=== PATIENT | male | born 1940 | race Caucasian/White ===

== ENCOUNTER → 2021-12-02 | Outpatient (CLI) | payer MEDICARE, OTHER ==
[~2021-12-02] MED LIST: ASP81TEC PO; GLYB5TAB3 PO; MTF500T PO; MULT1CAP27 PO
== END ==
LOC: WOUNDCARE 09:12
PROVIDERS: ATTEND Family Medicine
DX: E11.621 Type 2 diabetes mellitus with foot ulcer (principal); L97.511 Non-pressure chronic ulcer of other part of right foot limited to breakdown of skin; E11.65 Type 2 diabetes mellitus with hyperglycemia; E11.40 Type 2 diabetes mellitus with diabetic neuropathy, unspecified; F03.90 Unspecified dementia, unspecified severity, without behavioral disturbance, psychotic disturbance, mood disturbance, and anxiety
CPT/HCPCS: A6197; A6212; G0463; 99204

== ENCOUNTER → 2021-12-09 | Outpatient (CLI) | payer MEDICARE, OTHER | LOC: WOUNDCARE 08:16 | PROVIDERS: ATTEND Family Medicine | DX: E11.65 Type 2 diabetes mellitus with hyperglycemia (principal); E11.40 Type 2 diabetes mellitus with diabetic neuropathy, unspecified; F03.90 Unspecified dementia, unspecified severity, without behavioral disturbance, psychotic disturbance, mood disturbance, and anxiety | CPT/HCPCS: 99212 ==

== ENCOUNTER 2022-01-04 19:21 | Inpatient (IN) | payer MEDICARE ==
[~2022-01-04] VITALS: Ht 180.3 cm; Wt 79.0 kg
[2022-01-04 19:30] LABS: BASOPHILS % (AUTO) 0 % (0-10); EOSINOPHILS % (AUTO) 0 % (0-10); HEMATOCRIT 32 % (40-54); HEMOGLOBIN 10.9 g/dL (13.3-17.7); LYMPHOCYTES # (AUTO) 0.4 10^3/uL (1.0-4.0); LYMPHOCYTES % (AUTO) 5 % (12-44); MEAN CORPUSCULAR HEMOGLOBIN 32 pg (25-34); MEAN CORPUSCULAR HGB CONC 34 g/dL (32-36); MEAN CORPUSCULAR VOLUME 95 fL (80-99); MEAN PLATELET VOLUME 9.2 fL (9.0-12.2); MONOCYTES # (AUTO) 0.6 10^3/uL (0.0-1.0); MONOCYTES % (AUTO) 6 % (0-12); NEUTROPHILS # (AUTO) 8.5 10^3/uL (1.8-7.8); NEUTROPHILS % (AUTO) 88 % (42-75); PLATELET COUNT 209 10^3/uL (130-400); WHITE BLOOD COUNT 9.6 10^3/uL (4.3-11.0)
[2022-01-04] MEDS ORDERED: NS IV 1000 ML 1,000 ML IV SCH ×3 (19:30→22:30)
[2022-01-04] MEDS ORDERED: ACETAMINOPHEN 500 MG TAB (TYLENOL) PO PRN (19:30)
--- NOTE | 2022-01-04 19:37 | ED General ---
General Stated Complaint: ELEV BS Source of Information: Patient (PT WITH DEMENTIA, UNABLE TO PROVIDE ANY PAST MEDICAL HISTORY), EMS History of Present Illness Date Seen by Provider: Jan 04, 2022 Time Seen by Provider: 19:21 Initial Comments PT ARRIVES VIA EMS FROM HOME EMS WAS CALLED FOR PT BEING LETHARGIC THIS EVENING SHORTLY PRIOR TO CALLING EMS. PT WALKED TO EMS COT, AND EARLIER TODAY HAD HIS HAIR CUT, WALKED ON TREADMILL EARLIER TODAY PT IS DIABETIC--BLOOD GLUCOSE TOO HIGH TO READ WITH KETONES FOR EMS EMS GAVE NS 400 ML PRIOR TO ARRIVAL WAS REPORTED TO EMS THAT PT HAS BEEN THIRSTY TODAY AND HAS HAD URINARY FREQUENCY ON ARRIVAL, PT IS AWAKE, ALERT, PLEASANT, BUT CONFUSED--REPORTEDLY NORMAL BASELINE WITH HIS DEMENTIA PT STATES HE FEELS FINE. PT NOTED TO HAVE TEMP OF 101.4/38.4 ON ARRIVAL HERE FINGERSTICK GLUCOSE 471 ON ARRIVAL HERE. DAUGHTER ARRIVES LATER ( EDUARDO FELIX RN) AND STATES THAT HE HAS BEEN WEAK FOR THE LAST 3 DAYS AND UNSTEADY ON HIS FEET, BUT NO OTHER SYMPTOMS FAMILY WERE UNAWARE OF FEVER. FAMILY STATE THAT PT IS DNR/DNI PT HAS HAD COVID-19 VACCINES X 2--OVER A YEAR AGO. NO BOOSTER VACCINE PCP: DR. KEI GRAVES Allergies and Home Medications Allergies Coded Allergies: No Known Allergies (Unverified Allergy, Mild, 11/02/09) Patient Home Medication List Aspirin (Aspirin Ec 81 Mg) 81 Mg Tabec, 81 MG PO DAILY, (Reported) Entered as Reported by: SHANKAR VAIL on 12/31/09 1342 Glyburide (Diabeta) 5 Mg Tablet, 5 MG PO DAILY, (Reported) Entered as Reported by: RICKI CHAND on 11/02/09 1720 Metformin Hcl (Metformin 500 Mg) 500 Mg Tablet, 500 MG PO BID, (Reported) Entered as Reported by: RICKI CHAND on 11/02/09 1720 Multivitamins (Multivitamins) 1 Each Capsule, 1 EACH PO DAILY, (Reported) Entered as Reported by: ANGELA ROGEL on 02/18/10 1341 Review of Systems Review of Systems Constitutional: see HPI, fever, malaise EENTM: no symptoms reported Respiratory: no symptoms reported Cardiovascular: no symptoms reported Gastrointestinal: no symptoms reported Genitourinary: see HPI, frequency Musculoskeletal: no symptoms reported Skin: no symptoms reported Psychiatric/Neurological: See HPI (NORMAL BASELINE DEMENTIA) Hematologic/Lymphatic: No Symptoms Reported Immunological/Allergic: no symptoms reported Past Ugbervb-Ctxrcz-Cydpss Hx Past Medical History Surgeries: Yes (BILATERAL KNEE REPLACEMENTS) Joint Replacement, Orthopedic Cardiac: Yes Heart Murmur, Hypertension Neurological: Yes Dementia Reproductive Disorders: No Musculoskeletal: Yes (BILATERAL KNEE REPLACEMENTS) Endocrine: Yes Diabetes, Non-Insulin dep Physical Exam Vital Signs Vital Signs - First Documented 01/04/22 19:22 Temp 38.4 Pulse 91 Resp 18 B/P (MAP) 134/66 (88) Pulse Ox 98 O2 Delivery Room Air Capillary Refill : Height, Weight, BMI Height: '" Weight: lbs. oz. kg; BMI Method:Stated General Appearance: No Apparent Distress, WD/WN HEENT: PERRL/EOMI Neck: Normal Inspection Respiratory: Normal Breath Sounds, No Accessory Muscle Use, No Respiratory Distress Cardiovascular: Regular Rate, Rhythm, No Edema, No JVD, Normal Peripheral Pulses, Systolic Murmur (3-4/6 SYSTOLIC MURMUR) Gastrointestinal: Non Tender, Soft Back: No CVA Tenderness Extremity: Non Tender, No Pedal Edema, Other (LARGE LIPOMATOUS-TYPE MASS TO LEFT UPPER THIGH. ) Neurologic/Psychiatric: Alert, No Motor/Sensory Deficits, Other (AWAKE, ALERT, PLEASANT, ORIENTED TO SELF, KNOWS HE IS IN HOSPITAL, DOES NOT KNOW WHY HE IS HERE, AND CONFUSED TO DATE/TIME. ) Skin: Normal Color, Warm/Dry (VERY WARM) Focused Exam Sepsis Stage: Sepsis Possible Source: Unknown Lactate Level 01/04/22 19:31: Lactic Acid Level 1.32 Time of Focused Exam: 20:40 Respiratory: Normal Breath Sounds, No Accessory Muscle Use, No Respiratory Distress Cardiovascular: Regular Rate, Rhythm, No Edema Capillary Refill: Less Than 3 Seconds Skin: normal color, warm/dry Lactic Acid Level Laboratory Tests Test 01/04/22 19:31 Lactic Acid Level 1.32 MMOL/L (0.50-2.00) Within 3hrs of presentation: Admin fluids, Admin ABX, Blood cultures prior to ABX's, Focus exam, Lactate level Progress/Results/Core Measures Suspected Sepsis SIRS Temperature: Pulse: Respiratory Rate: Laboratory Tests 01/04/22 19:23: White Blood Count 9.6 01/05/22 05:08: White Blood Count 8.1 Blood Pressure / Mean: 01/04/22 19:31: Lactic Acid Level 1.32 Laboratory Tests 01/04/22 19:23: Creatinine 2.24H, INR Comment 1.1, Platelet Count 209, Total Bilirubin 0.6 01/05/22 05:08: Creatinine 1.57H, Platelet Count 195 Results/Orders Lab Results Laboratory Tests Test 01/04/22 19:23 01/04/22 19:26 01/04/22 19:30 01/04/22 19:31 Range/Units White Blood Count 9.6 4.3-11.0 10^3/uL Red Blood Count 3.41 L 4.30-5.52 10^6/uL Hemoglobin 10.9 L 13.3-17.7 g/dL Hematocrit 32 L 40-54 % Mean Corpuscular Volume 95 80-99 fL Mean Corpuscular Hemoglobin 32 25-34 pg Mean Corpuscular Hemoglobin Concent 34 32-36 g/dL Red Cell Distribution Width 13.5 10.0-14.5 % Platelet Count 209 130-400 10^3/uL Mean Platelet Volume 9.2 9.0-12.2 fL Immature Granulocyte % (Auto) 1 % Neutrophils (%) (Auto) 88 H 42-75 % Lymphocytes (%) (Auto) 5 L 12-44 % Monocytes (%) (Auto) 6 0-12 % Eosinophils (%) (Auto) 0 0-10 % Basophils (%) (Auto) 0 0-10 % Neutrophils # (Auto) 8.5 H 1.8-7.8 10^3/uL Lymphocytes # (Auto) 0.4 L 1.0-4.0 10^3/uL Monocytes # (Auto) 0.6 0.0-1.0 10^3/uL Eosinophils # (Auto) 0.0 0.0-0.3 10^3/uL Basophils # (Auto) 0.0 0.0-0.1 10^3/uL Immature Granulocyte # (Auto) 0.1 0.0-0.1 10^3/uL Neutrophils % (Manual) 82 % Lymphocytes % (Manual) 5 % Monocytes % (Manual) 8 % Eosinophils % (Manual) 2 % Band Neutrophils 3 % Clumped Platelets SOME CLUMPING SEEN Blood Morphology Comment NORMAL Erythrocyte Sedimentation Rate 85 H 0-30 MM/HR Prothrombin Time 14.8 H 12.2-14.7 SEC INR Comment 1.1 0.8-1.4 Activated Partial Thromboplast Time 35 24-35 SEC Sodium Level 138 135-145 MMOL/L Potassium Level 4.6 3.6-5.0 MMOL/L Chloride Level 106 98-107 MMOL/L Carbon Dioxide Level 16 L 21-32 MMOL/L Anion Gap 16 H 5-14 MMOL/L Blood Urea Nitrogen 42 H 7-18 MG/DL Creatinine 2.24 H 0.60-1.30 MG/DL Estimat Glomerular Filtration Rate 29 BUN/Creatinine Ratio 19 Glucose Level 542 *H 70-105 MG/DL Calcium Level 10.1 8.5-10.1 MG/DL Corrected Calcium 10.2 H 8.5-10.1 MG/DL Magnesium Level 2.4 1.6-2.4 MG/DL Total Bilirubin 0.6 0.1-1.0 MG/DL Aspartate Amino Transf (AST/SGOT) 13 5-34 U/L Alanine Aminotransferase (ALT/SGPT) 14 0-55 U/L Alkaline Phosphatase 141 H 40-136 U/L C-Reactive Protein High Sensitivity 15.51 H 0.00-0.50 MG/DL Total Protein 7.3 6.4-8.2 GM/DL Albumin 3.9 3.2-4.5 GM/DL Amylase Level 18 L 25-125 U/L Lipase 7 L 8-78 U/L Beta-Hydroxybutyrate (Chem panel) 2.58 H 0.00-0.27 MMOL/L Procalcitonin 0.40 H <0.10 NG/ML Glucometer 468 *H 70-110 MG/DL Influenza Type A (RT-PCR) Not Detected Not Detecte Influenza Type B (RT-PCR) Not Detected Not Detecte SARS-CoV-2 RNA (RT-PCR) Not Detected Not Detecte Lactic Acid Level 1.32 0.50-2.00 MMOL/L Test 01/04/22 19:40 01/04/22 20:07 01/04/22 22:28 01/04/22 22:32 Range/Units Urine Color YELLOW Urine Clarity CLEAR Urine pH 5.5 5-9 Urine Specific Foster 1.010 L 1.016-1.022 Urine Protein NEGATIVE NEGATIVE Urine Glucose (UA) 3+ H NEGATIVE Urine Ketones 1+ H NEGATIVE Urine Nitrite NEGATIVE NEGATIVE Urine Bilirubin NEGATIVE NEGATIVE Urine Urobilinogen 0.2 < = 1.0 MG/DL Urine Leukocyte Esterase NEGATIVE NEGATIVE Urine RBC (Auto) TRACE-I H NEGATIVE Urine RBC NONE /HPF Urine WBC NONE /HPF Urine Squamous Epithelial Cells NONE /HPF Urine Crystals NONE /LPF Urine Bacteria TRACE /HPF Urine Casts NONE /LPF Urine Mucus SMALL H /LPF Urine Culture Indicated NO Blood Gas Puncture Site RIGHT RADIAL RIGHT RADIAL Blood Gas Patient Temperature 38.4 37.4 Arterial Blood pH 7.33 *L 7.37 7.37-7.43 Arterial Blood Partial Pressure CO2 40 37 35-45 MMHG Arterial Blood Partial Pressure O2 30 *L 38 *L 79-93 MMHG Arterial Blood HCO3 20 L 21 L 23-27 MMOL/L Arterial Blood Total CO2 21.3 21.9 21.0-31.0 MMOL/L Arterial Blood Oxygen Saturation 42 L 65 L 94-100 % Arterial Blood Base Excess -4.5 L -3.6 L -2.5-2.5 MMOL/L Presley Test YES-POS YES-POS Blood Gas Ventilator Setting NO NO Blood Gas Inspired Oxygen ROOM AIR ROOM AIR Glucometer 392 H 70-110 MG/DL Glucose Level 387 H 70-105 MG/DL Test 01/05/22 01:05 01/05/22 03:56 01/05/22 05:08 Range/Units Glucometer 116 H 124 H 70-110 MG/DL White Blood Count 8.1 4.3-11.0 10^3/uL Red Blood Count 2.85 L 4.30-5.52 10^6/uL Hemoglobin 9.0 L 13.3-17.7 g/dL Hematocrit 28 L 40-54 % Mean Corpuscular Volume 98 80-99 fL Mean Corpuscular Hemoglobin 32 25-34 pg Mean Corpuscular Hemoglobin Concent 32 32-36 g/dL Red Cell Distribution Width 13.6 10.0-14.5 % Platelet Count 195 130-400 10^3/uL Mean Platelet Volume 9.5 9.0-12.2 fL Immature Granulocyte % (Auto) 0 % Neutrophils (%) (Auto) 86 H 42-75 % Lymphocytes (%) (Auto) 6 L 12-44 % Monocytes (%) (Auto) 7 0-12 % Eosinophils (%) (Auto) 1 0-10 % Basophils (%) (Auto) 0 0-10 % Neutrophils # (Auto) 6.9 1.8-7.8 10^3/uL Lymphocytes # (Auto) 0.5 L 1.0-4.0 10^3/uL Monocytes # (Auto) 0.6 0.0-1.0 10^3/uL Eosinophils # (Auto) 0.1 0.0-0.3 10^3/uL Basophils # (Auto) 0.0 0.0-0.1 10^3/uL Immature Granulocyte # (Auto) 0.0 0.0-0.1 10^3/uL Sodium Level 144 135-145 MMOL/L Potassium Level 4.0 3.6-5.0 MMOL/L Chloride Level 116 #H 98-107 MMOL/L Carbon Dioxide Level 18 L 21-32 MMOL/L Anion Gap 10 5-14 MMOL/L Blood Urea Nitrogen 32 H 7-18 MG/DL Creatinine 1.57 H 0.60-1.30 MG/DL Estimat Glomerular Filtration Rate 44 BUN/Creatinine Ratio 20 Glucose Level 167 H 70-105 MG/DL Calcium Level 8.9 8.5-10.1 MG/DL Beta-Hydroxybutyrate (Chem panel) 0.87 H 0.00-0.27 MMOL/L My Orders Orders - LIZY HALLMAN DO Accucheck Stat ONCE (01/04/22 19:23) Ed Iv/Invasive Line Start (01/04/22 19:23) Monitor-Rhythm Ecg Trace Only (01/04/22 19:23) Amylase (01/04/22 19:23) Arterial Blood Gas (01/04/22 19:23) Cbc With Automated Diff (01/04/22 19:23) Comprehensive Metabolic Panel (01/04/22 19:23) Lactic Acid Analyzer (01/04/22 19:23) Lipase (01/04/22 19:23) Magnesium (01/04/22 19:23) Ua Culture If Indicated (01/04/22 19:23) Ed Iv/Invasive Line Start (01/04/22 19:23) Ns Iv 1000 Ml (Sodium Chloride 0.9%) (01/04/22 19:30) Beta Hydroxybutyrate (01/04/22 19:23) Hemoglobin A1c (01/04/22 19:23) Manual Differential (01/04/22 19:23) Procalcitonin (Pct) (01/04/22:) Hs C Reactive Protein (01/04/22:) Erythrocyte Sedimentation Rate (01/04/22:) Blood Culture (01/04/22:) Chest 1 View, Ap/Pa Only (01/04/22:) Covid 19 Inhouse Test (01/04/22:) Urine Culture (01/04/22:) Protime With Inr (01/04/22) Partial Thromboplastin Time (01/04/22:) Acetaminophen Tablet (Tylenol Tablet) (01/04/22 19:30) Ed Iv/Invasive Line Start (01/04/22:) Ed Iv/Invasive Line Start (01/04/22) Vital Signs Adult Sepsis Patie Q15M (01/04/22:) O2 (01/04/22:) Remove Rings In Anticipation O (01/04/22:) Influenza A And B By Pcr (01/04/22:) Isolation Central Supply Req (01/04/22:) Insulin (Regular) Human (Novolin R (Per (01/04/22 20:15) Ed Iv/Invasive Line Start (01/04/22 20:13) Ns Iv 1000 Ml (Sodium Chloride 0.9%) (01/04/22 20:15) Arterial Blood Draw - Obtain (01/04/22 ) Cefepime Injection (Maxipime Injection) (01/04/22 20:45) Code/Resuscitation (01/04/22 20:54) Arterial Blood Gas (01/04/22 21:51) Glucose (01/04/22 21:51) Insulin (Regular) Human (Novolin R (Per (01/04/22 22:30) Ed Iv/Invasive Line Start (01/04/22 22:30) Ns Iv 1000 Ml (Sodium Chloride 0.9%) (01/04/22 22:30) Arterial Blood Gas (01/04/22 22:32) Accucheck Stat ONCE (01/05/22 01:01) D5 1/2 Ns 1000 Ml Iv Solution (Dextrose (01/05/22 01:15) Accucheck Stat ONCE (01/05/22 03:50) Basic Metabolic Panel (01/05/22 04:51) Cbc With Automated Diff (01/05/22 04:51) Beta Hydroxybutyrate (01/05/22 04:51) Cefepime Injection (Maxipime Injection) (01/05/22 05:45) Medications Given in ED Current Medications Medications Dose Ordered Sig/Gabriella Route Start Time Stop Time Status Last Admin Dose Admin Acetaminophen 1,000 mg ONCE PRN PO 01/04/22 19:30 01/04/22 19:41 DC 01/04/22 19:41 1,000 MG Cefepime HCl 1000 mg/Sodium Chloride 50 ml @ 100 mls/hr ONCE ONCE IV 01/04/22 20:45 01/04/22 21:14 DC 01/04/22 21:00 100 MLS/HR Cefepime HCl 1000 mg/Sodium Chloride 50 ml @ 100 mls/hr ONCE ONCE IV 01/05/22 05:45 01/05/22 06:14 DC 01/05/22 05:46 100 MLS/HR Insulin Human Regular 10 unit ONCE ONCE IV 01/04/22 22:30 01/04/22 22:32 DC 01/04/22 22:45 10 UNIT Insulin Human Regular 15 unit ONCE ONCE SC 01/04/22 20:15 01/04/22 20:16 DC 01/04/22 20:24 15 UNIT Vital Signs/I&O 01/04/22 01/04/22 19:22 19:41 Temp 38.4 38.4 Pulse 91 Resp 18 B/P (MAP) 134/66 (88) Pulse Ox 98 O2 Delivery Room Air 01/05/22 00:00 Intake Total 400 ml Balance 400 ml Capillary Refill : Progress Note : Progress Note PLACED IN ISOLATION ROOM PPE WORN COVID AND FLU TESTING DONE SEPSIS PROTOCOL INITIATED GIVEN: -IV FLUIDS -TYLENOL FOR FEVER -ANTIBIOTICS -INSULIN PT KEPT PUI, SYMPTOMS BEGAN JUST AN HOUR OR SO PRIOR TO ARRIVAL BLOOD GASES WERE VENOUS--NOT ARTERIAL. REPEAT BLOOD SUGARS TRENDING DOWN 0223--PT HAS BEEN RESTING QUIETLY THROUGHOUT ENTIRE ER STAY, AND NOW SUDDENLY IS AWAKE AND HAS PULLED OUT HIS IV AND RIPPED OFF ALL MONITORING DEVICES. BUT PT IS NOT OTHERWISE AGITATED AND REMAINS QUIET, VITALS ARE STABLE. 0500--AM LAB ORDERED. PT IS RESTING QUIETLY AND VOICES NO COMPLAINTS. STATES HE FEELS FINE. PT REMAINS COOPERATIVE AT THIS TIME. 06--MARKED DELAY IN OBTAINING LAB RESULTS. GLUCOSE LEVEL CONTINUES TO STABILIZE, AND PT NO LONGER REQUIRES INSULIN DRIP OR DKA PROTOCOLS AND WILL BE ABLE TO ADMIT TO MEDICAL FLOOR ON TELEMETRY INSTEAD OF ICU. RN CONTACTING RESOURCE DIRECTORclinical staff rn Imaging Comments CXR--PER RADIOLOGIST REPORT AT 2044 FINDINGS: The lung volumes are normal. No focal consolidation is seen. No large pleural effusion or pneumothorax is seen. The cardiomediastinal silhouette is normal in size and contour. No acute osseous abnormality is seen. IMPRESSION: 1. No acute pleuroparenchymal process. Reviewed: Reviewed by Me Departure Communication (Admissions) 2034--SPOKE WITH DR. CORTEZ, HOSPITALIST. ACCEPTS PT FOR ADMIT HOSPITAL IS CURRENTLY FULL, BUT ANTICIPATE THAT ICU BED WILL BE OPENING UP SOON, THEREFORE WILL HOLD PT IN ER. Impression Primary Impression: DKA (diabetic ketoacidosis) Additional Impressions: SEPSIS UNKNOWN ETIOLOGY Person under investigation for COVID-19 Renal insufficiency Dementia Departure-Patient Inst. Referrals: KEI GRAVES MD (PCP) Primary Care Physician LIZY HALLMAN DO Jan 04, 2022 19:37
[2022-01-04 19:44] LABS: INR 1.1 (0.8-1.4); PROTHROMBIN TIME PATIENT 14.8 SEC (12.2-14.7)
[2022-01-04 19:51] LABS: BILIRUBIN,URINE NEGATIVE (NEGATIVE); CLARITY,URINE CLEAR; COLOR,URINE YELLOW; GLUCOSE, URINE (UA) 3+ (NEGATIVE); KETONES,URINE 1+ (NEGATIVE); LEUKOCYTE ESTERASE ,URINE NEGATIVE (NEGATIVE); NITRITE,URINE NEGATIVE (NEGATIVE); PH,URINE 5.5 (5-9); PROTEIN,URINE NEGATIVE (NEGATIVE)
[2022-01-04 19:58] LABS: ALBUMIN 3.9 GM/DL (3.2-4.5); BAND NEUTROPHILS 3 %; EOSINOPHILS % (MANUAL) 2 %; LYMPHOCYTES % (MANUAL) 5 %; MONOCYTES % (MANUAL) 8 %; NEUTROPHILS % (MANUAL) 82 %; PLATELET CLUMPS SOME CLUMPING SEEN; RBC MORPH NORMAL
[2022-01-04 19:59] LABS: POTASSIUM 4.6 MMOL/L (3.6-5.0)
[2022-01-04 20:00] LABS: CALCIUM 10.1 MG/DL (8.5-10.1)
[2022-01-04 20:01] LABS: TOTAL PROTEIN 7.3 GM/DL (6.4-8.2)
[2022-01-04 20:03] LABS: BILIRUBIN,TOTAL 0.6 MG/DL (0.1-1.0)
[2022-01-04 20:05] LABS: BACTERIA,URINE TRACE /HPF
[2022-01-04 20:05] LABS: CREATININE SERUM 2.24 MG/DL (0.60-1.30)
[2022-01-04 20:08] LABS: MAGNESIUM 2.4 MG/DL (1.6-2.4)
[2022-01-04] MEDS ORDERED: inSUlin (REGULAR) HUMAN 1 UNIT/0.01 ML (CHARGE PER UNIT) SC ONE (20:15)
--- NOTE | 2022-01-04 20:26 | Diagnostic Imaging Report ---
EXAMINATION: Chest 1 view HISTORY: Fever. COMPARISON: None available. FINDINGS: The lung volumes are normal. No focal consolidation is seen. No large pleural effusion or pneumothorax is seen. The cardiomediastinal silhouette is normal in size and contour. No acute osseous abnormality is seen. IMPRESSION: 1. No acute pleuroparenchymal process. Dictated by: Dictated on workstation # [id number]
[2022-01-04 20:33] LABS: ABG BASE EXCESS -4.5 MMOL/L (-2.5-2.5); ABG OXYGEN SATURATION 42 % (94-100); ABG PCO2 40 MMHG (35-45); ABG TCO2 21.3 MMOL/L (21.0-31.0)
[2022-01-04 20:34] LABS: ABG PH 7.33 (7.37-7.43)
[2022-01-04 20:35] LABS: ABG PO2 30 MMHG (79-93); ALLENS TEST YES-POS; INSPIRED O2 ROOM AIR; VENTILATOR NO
[2022-01-04 20:36] LABS: PATIENT TEMP 38.4
[2022-01-04] MEDS ORDERED: CEFEPIME INJECTION 1,000 MG in NS (IVPB) 50 ML IV ONE (20:45)
[2022-01-04] MEDS ORDERED: inSUlin (REGULAR) HUMAN 1 UNIT/0.01 ML (CHARGE PER UNIT) IV ONE (22:30)
[2022-01-04 22:43] LABS: ABG BASE EXCESS -3.6 MMOL/L (-2.5-2.5); ABG OXYGEN SATURATION 65 % (94-100); ABG PCO2 37 MMHG (35-45); ABG PH 7.37 (7.37-7.43); ABG TCO2 21.9 MMOL/L (21.0-31.0)
[2022-01-04 22:44] LABS: ABG PO2 38 MMHG (79-93); ALLENS TEST YES-POS; INSPIRED O2 ROOM AIR; PATIENT TEMP 37.4; VENTILATOR NO
[2022-01-05] VITALS (8 sets, daily range): BP systolic 107–140; BP diastolic 54–67
[2022-01-05] MEDS ORDERED: D5 1/2 NS 1000 ML IV SOLUTION 1,000 ML IV SCH (01:15)
[2022-01-05] MEDS ORDERED: CEFEPIME INJECTION 1,000 MG in NS (IVPB) 50 ML IV ONE (05:45)
[2022-01-05 06:17] LABS: BASOPHILS % (AUTO) 0 % (0-10); EOSINOPHILS # (AUTO) 0.1 10^3/uL (0.0-0.3); EOSINOPHILS % (AUTO) 1 % (0-10); HEMATOCRIT 28 % (40-54); LYMPHOCYTES # (AUTO) 0.5 10^3/uL (1.0-4.0); LYMPHOCYTES % (AUTO) 6 % (12-44); MEAN CORPUSCULAR HEMOGLOBIN 32 pg (25-34); MEAN CORPUSCULAR HGB CONC 32 g/dL (32-36); MEAN CORPUSCULAR VOLUME 98 fL (80-99); MEAN PLATELET VOLUME 9.5 fL (9.0-12.2); MONOCYTES # (AUTO) 0.6 10^3/uL (0.0-1.0); MONOCYTES % (AUTO) 7 % (0-12); NEUTROPHILS # (AUTO) 6.9 10^3/uL (1.8-7.8); NEUTROPHILS % (AUTO) 86 % (42-75); PLATELET COUNT 195 10^3/uL (130-400); WHITE BLOOD COUNT 8.1 10^3/uL (4.3-11.0)
[2022-01-05 06:18] LABS: CALCIUM 8.9 MG/DL (8.5-10.1)
[2022-01-05 06:23] LABS: CREATININE SERUM 1.57 MG/DL (0.60-1.30)
[2022-01-05] MEDS ORDERED: NS IV 1000 ML 1,000 ML IV SCH (08:00)
[2022-01-05] MEDS ORDERED: ACETAMINOPHEN 500 MG TAB (TYLENOL) PO PRN (08:00)
[2022-01-05] MEDS ORDERED: ONDANSETRON 4 MG/2 ML (SDV) Z0FRAN IVP PRN (08:00)
[2022-01-05] MEDS ORDERED: ENAL10TA16 PO (11:17)
[2022-01-05] MEDS ORDERED: TMSL.4C PO (11:17)
[2022-01-05] MEDS ORDERED: DONE10TA41 PO (11:17)
[2022-01-05] MEDS ORDERED: CHOL-34 PO (11:17)
[2022-01-05] MEDS ORDERED: DIPH25TA65 PO (11:17)
[2022-01-05] MEDS ORDERED: NAPR220C11 PO (11:17)
[2022-01-05] MEDS ORDERED: MEMA5TAB43 PO (11:17)
[2022-01-05] MEDS ORDERED: MULT-1136 PO (11:17)
[2022-01-05] MEDS ORDERED: METF-397 PO (11:17)
[2022-01-05] MEDS ORDERED: ASCO100024 PO (11:17)
[2022-01-05] MEDS ORDERED: ZINC50TA51 PO (11:17)
[2022-01-05] MEDS ORDERED: CEFEPIME INJECTION 1,000 MG in NS (IVPB) 50 ML IV SCH (12:00)
[2022-01-05] MEDS: inSUlin ASPART (NovoLOG) 1 UNIT/0.01 ML (CHARGE PER UNIT) SC SCH ×3 (12:15→20:57)
[2022-01-05 12:52] LABS: BAND NEUTROPHILS 10 %; EOSINOPHILS % (MANUAL) 1 %; LYMPHOCYTES % (MANUAL) 7 %; MONOCYTES % (MANUAL) 4 %; NEUTROPHILS % (MANUAL) 78 %; RBC MORPH NORMAL
[2022-01-05] MEDS: NS IV 1000 ML 1,000 ML IV SCH ×2 (14:16→16:23)
--- NOTE | 2022-01-05 16:58 | History & Physical-Hospitalist ---
History of Present Illness HPI/Chief Complaint Rex Gabriel is an 81 year old male with PMH HTN, T2DM, BPH, dementia, who presented with lethargy. He is a poor historian due to his dementia. He was reportedly feeling weak for a few days according to family. He denies any fevers and chills. He denies pain. He denies shortness of breath and cough. He denies abdominal pain, nausea, vomiting, and diarrhea. He denies any joint pain. He denies any skin changes. Source: patient, RN/MD Exam Limitations: clinical condition Date Seen 01/05/22 Time Seen by a Provider: 10:45 Attending Physician Alonzo Espinoza MD PCP Admitting Physician: Julian Alvarez MD Attending Physician: Moni Sen MD Referring Physician Date of Admission Jan 04, 2022 at 20:35 Home Medications & Allergies Home Medications Reviewed patient Home Medication Reconciliation performed by pharmacy medication reconciliations entry level installation technician and/or nursing. Patients Allergies have been reviewed. Allergies Allergies Coded Allergies NKANo Known Allergies (Unverified Allergy, Mild, 11/02/09) Past Phqlzrt-Nlppwr-Fthtjz Hx Patient Social History Tobacco Use?: No Use of E-Cig and/or Vaping dev: Yes Substance use?: No Alcohol Use?: No Pt feels they are or have been: No Immunizations Up To Date First/Initial COVID19 Vaccinat: UNKNOWN Tetanus Booster (TDap): Unknown Hepatitis A: No Hepatitis B: No Current Status Advance Directives: No Advance Directive Location: FAMILY IN PROCESS OF GETTING ONE Communicates: Verbally Primary Language: Brazilian Preferred Spoken Language: Brazilian Is interpretation needed?: No Sensory deficits: Vision impairment, Hearing impairment Implanted or Applied Medical D: None Past Medical History Surgeries: Joint Replacement, Orthopedic Heart Murmur, Hypertension Dementia Diabetes, Non-Insulin dep Family Medical History No Pertinent Family Hx Review of Systems Constitutional: weakness EENTM: no symptoms reported Respiratory: no symptoms reported Cardiovascular: no symptoms reported Gastrointestinal: no symptoms reported Genitourinary: no symptoms reported Musculoskeletal: no symptoms reported Physical Exam Physical Exam Vital Signs Vital Signs - First Documented 01/04/22 19:22 Temp 38.4 Pulse 91 Resp 18 B/P (MAP) 134/66 (88) Pulse Ox 98 O2 Delivery Room Air Capillary Refill : Less Than 3 Seconds Height, Weight, BMI Height: '" Weight: lbs. oz. kg; 23.07 BMI Method:Stated General Appearance: No Apparent Distress, WD/WN HEENT: PERRL/EOMI, Pharynx Normal Neck: Normal Inspection, Supple Respiratory: Lungs Clear, Normal Breath Sounds, No Respiratory Distress Cardiovascular: Regular Rate, Rhythm, No Edema, No Murmur Gastrointestinal: Normal Bowel Sounds, Non Tender, Soft Extremity: Normal Inspection, Non Tender, No Pedal Edema Neurologic/Psychiatric: Alert, Normal Mood/Affect Skin: Normal Color, Warm/Dry Results Results/Procedures Labs Laboratory Tests 01/04/22 19:23 01/04/22 22:32 01/05/22 05:08 Patient resulted labs reviewed. Imaging: Reviewed Imaging Report Assessment/Plan Admission Diagnosis DKA Admission Status: Inpatient Order (span 2 midnights) Reason for Inpatient Admission: DKA Fever Assessment and Plan T2DM with DKA ROBBI on CKD Blood sugar significantly elevated High anion gap metabolic acidosis Beta hydroxybutyrate elevated Started on insulin in ER Unable to admit to ICU, no bed availablility DKA resolved, admitted to medical floor IV fluids Levemir Sliding scale insulin A1C pending SIRS No infectious source identified Fever, slighlty elevated heart rate on arrival No fevers since arrival Manual diff with 10% bands Procal mildly elevated CXR normal UA negative Urine culture with no growth Blood cultures with no growth COVID and flu negative Started on Cefepime HTN BPH Dementia Resume home meds DVT prophylaxis: Lovenox Diagnosis/Problems Diagnosis/Problems (1) T2DM (type 2 diabetes mellitus) Status: Acute Qualifiers: Diabetes mellitus jail insulin use: without moth exterminator use Diabetes mellitus complication status: with ketoacidosis Diabetes mellitus complication detail: without coma Qualified Codes: E11.10 - Type 2 diabetes mellitus with ketoacidosis without coma (2) Acute kidney injury superimposed on chronic kidney disease Status: Acute (3) SIRS (systemic inflammatory response syndrome) (4) HTN (hypertension) Status: Chronic (5) BPH (benign prostatic hyperplasia) Status: Chronic (6) Dementia Status: Chronic MONI SEN MD Jan 05, 2022 16:58
[2022-01-05] MEDS ORDERED: MELATONIN 3 MG TABLET PO PRN (17:00)
[2022-01-05] MEDS ORDERED: MILK OF MAGNESIA 400 MG/5 ML 30 ML UDC PO PRN (17:00)
[2022-01-05] MEDS ORDERED: ONDANSETRON 4 MG/2 ML (SDV) Z0FRAN IV PRN (17:00)
[2022-01-05] MEDS ORDERED: ONDANSETRON 4 MG (ZOFRAN) ORAL DISSOLVE TAB PO PRN (17:00)
[2022-01-05] MEDS ORDERED: LACTULOSE SYRUP 10GM/15ML (ENULOSE) 30ML UDC PO PRN (17:00)
[2022-01-05] MEDS ORDERED: polyethylene glycoL POWDER 17 GM (MIRALAX) PACK PO PRN (17:00)
[2022-01-05] MEDS ORDERED: ANTACID SUSP 30 ML UDC (MYLANTA) PO PRN (17:00)
[2022-01-05] MEDS ORDERED: BISACODYL 10 MG SUPP (DULCOLAX) PR PRN (17:00)
[2022-01-05] MEDS ORDERED: CALCIUM CARBONATE 500 MG (TUMS) TAB.CHEW PO PRN (17:00)
[2022-01-05] MEDS ORDERED: ACETAMINOPHEN 325 MG TABLET PO PRN (17:00)
[2022-01-05] MEDS: TAMSULOSIN 0.4 MG (FLOMAX) CAP PO SCH (18:04)
[2022-01-05] MEDS: CEFEPIME INJECTION 1,000 MG in NS (IVPB) 50 ML IV SCH (19:59)
[2022-01-05] MEDS: DONEPEZIL 10 MG (ARICEPT) TAB PO SCH (20:00)
[2022-01-05] MEDS: MEMANTINE 5 MG (NAMENDA) TABLET PO SCH (20:00)
[2022-01-05] MEDS: SENNOSIDES 8.6 MG (SENOKOT) TAB PO SCH (20:00)
[2022-01-05] MEDS: DOCUSATE SODIUM 100 MG (COLACE) CAP PO SCH (20:00)
[2022-01-06] MEDS: NS IV 1000 ML 1,000 ML IV SCH ×2 (02:55→15:28)
[2022-01-06 02:57] VITALS: BP 109/63
[2022-01-06] MEDS: CEFEPIME INJECTION 1,000 MG in NS (IVPB) 50 ML IV SCH ×2 (04:30→12:37)
[2022-01-06] MEDS: inSUlin ASPART (NovoLOG) 1 UNIT/0.01 ML (CHARGE PER UNIT) SC SCH ×4 (04:34→21:06)
[2022-01-06 05:49] LABS: BASOPHILS % (AUTO) 0 % (0-10); EOSINOPHILS # (AUTO) 0.1 10^3/uL (0.0-0.3); EOSINOPHILS % (AUTO) 1 % (0-10); HEMATOCRIT 27 % (40-54); LYMPHOCYTES # (AUTO) 0.6 10^3/uL (1.0-4.0); LYMPHOCYTES % (AUTO) 6 % (12-44); MEAN CORPUSCULAR HEMOGLOBIN 32 pg (25-34); MEAN CORPUSCULAR HGB CONC 33 g/dL (32-36); MEAN CORPUSCULAR VOLUME 96 fL (80-99); MEAN PLATELET VOLUME 9.3 fL (9.0-12.2); MONOCYTES # (AUTO) 0.9 10^3/uL (0.0-1.0); MONOCYTES % (AUTO) 9 % (0-12); NEUTROPHILS # (AUTO) 7.6 10^3/uL (1.8-7.8); NEUTROPHILS % (AUTO) 83 % (42-75); PLATELET COUNT 203 10^3/uL (130-400); WHITE BLOOD COUNT 9.2 10^3/uL (4.3-11.0)
[2022-01-06 06:00] LABS: ALBUMIN 3.1 GM/DL (3.2-4.5)
[2022-01-06 06:01] LABS: POTASSIUM 3.6 MMOL/L (3.6-5.0)
[2022-01-06 06:02] LABS: CALCIUM 8.8 MG/DL (8.5-10.1)
[2022-01-06 06:03] LABS: TOTAL PROTEIN 5.8 GM/DL (6.4-8.2)
[2022-01-06 06:05] LABS: BILIRUBIN,TOTAL 0.4 MG/DL (0.1-1.0)
[2022-01-06 06:07] LABS: CREATININE SERUM 1.58 MG/DL (0.60-1.30)
--- NOTE | 2022-01-06 07:12 | Diagnostic Imaging Report ---
INDICATION: Fever. Time of Exam: 6:29 AM Correlation is made prior chest radiograph from 01/04/2022. Findings: The heart size is normal. The pulmonary vascularity is unremarkable. The lungs are clear. No infiltrate, effusion or pneumothorax is detected. Impression: No acute cardiopulmonary process is detected. Dictated by: Dictated on workstation # [id number]
[2022-01-06 07:29] VITALS: BP 110/61
--- NOTE | 2022-01-06 08:36 | Physical Therapy Evaluation ---
PT Evaluation-General Medical Diagnosis Admission Date Jan 04, 2022 at 20:35 Medical Diagnosis: DKA Onset Date: Jan 04, 2022 Therapy Diagnosis Therapy Diagnosis: impaired mobility, safety awareness Precautions Precautions/Isolations: Airborne Isolation Referral Physician: Anne Reason for Referral: Evaluation/Treatment Medical History Additional Medical History Past Medical History Surgeries: Joint Replacement, Orthopedic Heart Murmur, Hypertension Dementia Diabetes, Non-Insulin dep Reviewed History: Yes Social History Current Living Status: Spouse Entry Into Home: Stairs Without Railing PT Steps Into Home: 2 per patient report Prior Prior Level of Function SCALE: Activities may be completed with or without assistive devices. 4-Orltilobaj-ydzkybs completes the activity by him/herself with no assistance from a helper. 5-Set-up or Clean-up Assistance-helper sets up or cleans up; patient completes activity. [place] assists only prior to or following the activity. 4-Supervision or Touching Assistance-helper provides verbal cues and/or touching/steadying and/or contact guard assistance as patient completes activity. Assistance may be provided throughout the activity or intermittently. 3-Partial/Moderate Assistance-helper does LESS THAN HALF the effort. [place] lifts, holds or supports trunk or limbs, but provides less than half the effort. 2-Substantial/Maximal Assistance-helper does MORE THAN HALF the effort. [place] lifts or holds trunk or limbs and provides more than half the effort. 6-Zrxkozuvh-nizzwl does ALL the effort. Patient does none of the effort to complete the activity. Or, the assistance of 2 or more helpers is required for the patient to complete the activity. If activity was not attempted, code reason: 7-Patient Refused. 9-Not Applicable-not attempted and the patient did not perform the activity before the current illness, exacerbation or injury. 10-Not Attempted due to Environmental Limitations-(lack of equipment, weather restraints, etc.). 88-Not Attempted due to Medical Conditions or Safety Concerns. unknown PT Evaluation-Current Subjective Patient in bed pre tx, agrees to PT, has no complaints of pain, patient states he needs to use the restroom and is focused on this. Pt/Family Goals none stated Objective Patient Orientation: Person, Confused, Unable to Assess ROM/Strength ROM Lower Extremities WNL Sensory Hearing: Functional Transfers Roll Left to Right (QC): 6 Sit to Lying (QC): 6 Lying to Sitting/Side of Bed(Q: 6 Sit to Stand (QC): 4 (CGA) Toilet Transfer (QC): 4 (CGA) Patient sits to the side of the bed independently and immediately stands and starts ambulating toward the restroom despite therapist cues for safety. Patient has no regard for his IV pole or safety and balance. Therapist has to steady patient on the way to the restroom while trying to keep patient from ripping out his IV. Patient is able to get his brief down and sit on the toilet. His brief is soaked so a new one is obtained for him. He needs assist getting the old one off and the new one on. When done he ambulates back to the bed and lays down (poor safety the same as when he ambulated to the restroom) and scoots up in bed. Gait Does the Patient Walk?: Yes Mode of Locomotion: Walk Anticipated Mode of Locomotion: Walk Walk 10 feet (QC): 4 Distance: 10'x2 Gait Assistive Device: None Comments/Gait Description Patient would benefit from using a RW but he may be too confused/impulsive to use it properly. Treatment bed mobility and transfers, ambulation, toileting Assessment/Needs Patient has poor safety awareness and is very impulsive Rehab Potential: Poor PT [facility] Goals Conservation Technician Goals PT [facility] Goals Time Frame: Jan 13, 2022 Roll Left & Right (QC): 6 Sit to Lying (QC): 6 Lying-Sitting on Side/Bed(QC): 6 Sit to Stand (QC): 4 (SBA) Chair/Swl-eg-Atwku Xfer(QC): 4 (SBA) Walk 10 feet (QC): 4 (SBA) Walk 50ft with 2 Turns (QC): 4 (SBA) PT Plan Problem List Problem List: Activity Tolerance, Functional Strength, Safety, Balance, Gait, Transfer, Bed Mobility, ROM Treatment/Plan Treatment Plan: Continue Plan of Care Treatment Plan: Bed Mobility, Education, Functional Activity Ottoniel, Functional Strength, Gait, Safety, Therapeutic Exercise, Transfers Treatment Duration: Jan 13, 2022 Frequency: 6 times per week Estimated Hrs Per Day: .25 hour per day Patient and/or Family Agrees t: Yes Safety Risks/Education Patient Education: Gait Training, Transfer Techniques, Correct Positioning, Safety Issues Teaching Recipient: Patient Teaching Methods: Demonstration, Discussion Response to Teaching: Reinforcement Needed Discharge Recommendations Plan Patient will perform bed mobility and transfer training, balance and endurance training, functional strengthening, stair training, gait training, and education, to improve functional mobility and independence at home. Therapy Discharge Recommendati: 24 Hour Supervision Time/GCodes Time In: 811 Time Out: 821 Total Billed Treatment Time: 10 Total Billed Treatment 1 visit EMILY DE LUNA PT Jan 06, 2022 08:36
[2022-01-06] MEDS: ENOXAPARIN 40 MG/0.4 ML (LOVENOX) SYR SC SCH (08:55)
[2022-01-06] MEDS: MEMANTINE 5 MG (NAMENDA) TABLET PO SCH ×2 (08:56→20:27)
[2022-01-06] MEDS: SENNOSIDES 8.6 MG (SENOKOT) TAB PO SCH ×2 (08:56→20:27)
[2022-01-06] MEDS: ENALAPRIL 10 MG (VASOTEC) TAB PO SCH (08:56)
[2022-01-06] MEDS: DOCUSATE SODIUM 100 MG (COLACE) CAP PO SCH ×2 (08:56→20:27)
[2022-01-06] MEDS ORDERED: PHARMACY TO DOSE SQ SCH (09:00)
--- NOTE | 2022-01-06 09:59 | Occupational Therapy Eval ---
OT Evaluation-General/PLF Medical Diagnosis Admission Date Jan 04, 2022 at 20:35 Medical Diagnosis: DKA Onset Date: Jan 04, 2022 Therapy Diagnosis Therapy Diagnosis: decreased ADL status and weakness Precautions Precautions/Isolations: Airborne Isolation Referral Physician: Anne Mackenzie Reason: Evaluation/Treatment Medical History Additional Medical History HTN, DM, BPH, dementia, and heart murmur Current History Admit to ED with c/o feeling weak and lethargic for past few days. Social History Current Living Status: Spouse Entry Into Home: Stairs Without Railing Steps Into Home: 2 ADL-Prior Level of Function SCALE: Activities may be completed with or without assistive devices. 2-Ffomzwxbtl-wrbayqz completes the activity by him/herself with no assistance from a helper. 5-Set-up or Clean-up Assistance-helper sets up or cleans up; patient completes activity. [place] assists only prior to or following the activity. 4-Supervision or Touching Assistance-helper provides verbal cues and/or touching/steadying and/or contact guard assistance as patient completes activity. Assistance may be provided throughout the activity or intermittently. 3-Partial/Moderate Assistance-helper does LESS THAN HALF the effort. [place] lifts, holds or supports trunk or limbs, but provides less than half the effort. 2-Substantial/Maximal Assistance-helper does MORE THAN HALF the effort. [place] lifts or holds trunk or limbs and provides more than half the effort. 4-Ggtmgmdzo-exemxs does ALL the effort. Patient does none of the effort to complete the activity. Or, the assistance of 2 or more helpers is required for the patient to complete the activity. If activity was not attempted, code reason: 7-Patient Refused. 9-Not Applicable-not attempted and the patient did not perform the activity before the current illness, exacerbation or injury. 10-Not Attempted due to Environmental Limitations-(lack of equipment, weather restraints, etc.). 88-Not Attempted due to Medical Conditions or Safety Concerns. ADL PLOF Comments Pt was very lethargic and is a poor historian, unable to provide detailed PLOF. He did tell therapist that he has a and two children and states that he lives in [place], [place]. Self Care: Needed Some Help Functional Cognition: Needed Some Help OT Current Status Subjective Pt sleeping in bed upon OT arrival, agreeable to eval/tx once aroused. He was not able to communicate clearly with clinician but was cooperative during session. Mental Status/Objective Patient Orientation: Person, Non-Verbal/Aphasic Attachments: IV Current Hand Dominance: Right Upper Extremity ROM ~ 120 degrees of L shoulder flexion AROM, and ~90 degrees of R shoulder flexion AROM Upper Extremity Strength fist squeeze was grossly 2+/5 bilaterally ADL-Treatment Eating (QC): 5 (assistance to open some containers per clinical judgement) Oral Hygiene (QC): 3 (Min A for v/c's and assistance to hold spit basin) Lower Body Dressing (QC): 2 (Max A per PT report) Other Treatments Pt remained in bed throughout duration of tx. Pt provided minimal information about PLOF and living situation d/t lethargy and being a poor historian. He participated in an UE screen and completed oral care while seated up in bed, min A, and able to comb hair with set up assist. He required v/c's throughout session for sequencing with oral care and cues to participate. Post tx, pt in bed, call light in reach and all needs met. Education OT Patient Education: Correct positioning, Energy conservation, Modified ADL techniques, Progress toward Goal/Update tx plan, Purpose of tx/functional activities, Rehab process, Safety issues Teaching Recipient: Patient Teaching Methods: Discussion Response to Teaching: Reinforcement Needed OT Mannequin Molder Goals Mannequin Molder Goals Time Frame: Jan 22, 2022 Toileting Hygiene (QC): 4 Shower/Bathe Self (QC): 4 Upper Body Dressing (QC): 4 Lower Body Dressing (QC): 3 On/Off Footwear (QC): 3 Additional Goals: 1-Demonstrate ADL Tasks, 2-Verbalize Understanding, 3-ImproveStrength/Ottoniel 1=Demonstrate adherence to instructed precautions during ADL tasks. 2=Patient will verbalize/demonstrate understanding of assistive devices/modifications for ADL. 3=Patient will improve strength/tolerance for activity to enable patient to perform ADL's. OT Education/Plan Problem List/Assessment Assessment: Decreased Activ Tolerance, Decreased Safety Aware, Decreased UE Strength, Impaired Cognition, Impaired Funct Balance, Impaired I ADL's, Impaired Self-Care Skills Discharge Recommendations Plan/Recommendations: Continue POC Treatment Plan/Plan of Care Patient would benefit from OT for education, treatment and training to promote independence in ADL's, mobility, safety and/or upper extremity function for ADL's. Plan of Care: ADL Retraining, Functional Mobility, UE Funct Exercise/Act Treatment Duration: Jan 22, 2022 Frequency: 3 times per week (3-5 times per week) Estimated Hrs Per Day: .25 hour per day Agreement: Yes Rehab Potential: Guarded Time/GCodes Start Time: 09:40 Stop Time: 09:50 Total Time Billed (hr/min): 10 Billed Treatment Time 1, OPAL MATA OT Jan 06, 2022 09:59
[2022-01-06 11:44] VITALS: BP 115/55
[2022-01-06] MEDS ORDERED: LIDOCAINE/EPI 1%-1:200,000 (XYLOCAINE) 30 ML VIAL ONE (11:48)
--- NOTE | 2022-01-06 13:49 | CONSULTATION REPORT ---
DATE OF SERVICE: 01/06/2022 ATTENDING PRIMARY CARE PHYSICIAN: Dr. Alonzo Espinoza. ADMITTING PHYSICIAN: Dr. Julian Alvarez. HISTORY OF PRESENT ILLNESS: The patient is an 81-year-old male with history of hypertension, diabetes, and dementia, who presented to the Emergency Department with lethargy. He was found to also be hyperglycemic as well as in diabetic ketoacidosis. The patient was admitted and treated appropriately with a good response. Upon further questioning, he reports that he has had before admission, he had had fatigue and his blood sugars had increased. Since being admitted, nursing did identify a lesion of the right perianal region with some fluctuance consistent with an abscess. This was the likely inciting event causing his hyperglycemia, DKA as well as fatigue. PAST MEDICAL HISTORY: Hypertension, cardiac murmur, dementia, and non-insulin dependent diabetes. PAST SURGICAL HISTORY: Bilateral knee replacement. ALLERGIES: No known drug allergies. MEDICATIONS: Donepezil 10 mg daily, enalapril 10 mg daily, memantine 5 mg b.i.d., metformin 500 mg b.i.d., and tamsulosin 0.4 mg daily. SOCIAL HISTORY: Previous history of smoke and negative alcohol. FAMILY HISTORY: Noncontributory. REVIEW OF SYSTEMS: A well-nourished male who does answer a good amount of questions appropriately. He is not experiencing any shortness of breath or difficulty in breathing. No chest pain, palpitations, diaphoresis. No nausea, vomiting, no diarrhea or constipation, no red blood per rectum, no dark tarry stools. He has been having fatigue and also found to be hyperglycemic. All other review of systems negative. PHYSICAL EXAMINATION: VITAL SIGNS: Temperature 37.7, blood pressure 115/55, pulse 71, respirations 18, and pulse ox 94% on room air. CHEST: Few scattered rales bilaterally. HEART: Regular, no murmurs. EXTREMITIES: No lower extremity edema and negative Homans sign. HEENT: No scleral icterus. NECK: No cervical lymphadenopathy. ABDOMEN: Soft, nontender, and nondistended. SKIN: Along the right perianal region at the confluence of the medial right thigh and the perineum is an area of redness, erythema as well as an overlying necrotic skin approximately 3 x 2 cm in size. LABORATORY DATA: WBC 9.2, hemoglobin 9.0, hematocrit 27, and platelets 203. BUN 29, creatinine 1.58, and glucose is 143. ASSESSMENT AND PLAN: An 81-year-old male admitted for fatigue and diabetic ketoacidosis. The likely inciting event was the abscess, which caused the increase in blood sugar and eventual DKA and dehydration resulting in the fatigue. We will proceed with incision and drainage as well as debridement of any devitalized tissue of the abscess. Job ID: [id number] DocumentID: [id number] Dictated Date: 01/06/2022 13:24:56 Teaching Artist Date: 01/06/2022 13:49:01 Dictated By: RC PAT MD
[2022-01-06 15:36] VITALS: BP 99/55
[2022-01-06] MEDS ORDERED: PIPERACILLIN SODIUM/TAZOBACTAM 4.5 GM in NS (IVPB) 100 ML IV NR (18:00)
--- NOTE | 2022-01-06 18:05 | Progress Note - Hospitalist ---
Subjective HPI/CC On Admission Date Seen by Provider: Jan 06, 2022 Time Seen by Provider: 11:45 Rex Gabriel is an 81 year old male with PMH HTN, T2DM, BPH, dementia, who presented with lethargy. He is a poor historian due to his dementia. He was reportedly feeling weak for a few days according to family. He denies any fevers and chills. He denies pain. He denies shortness of breath and cough. He denies abdominal pain, nausea, vomiting, and diarrhea. He denies any joint pain. He denies any skin changes. Subjective/Events-last exam He continues to have fevers. He was also found to have a perineal abscess. He has no other complaints. His and daughter are at the bedside and have been updated. Focused Exam Lactate Level 01/04/22 19:31: Lactic Acid Level 1.32 Time of Focused Exam: 20:40 Objective Exam Vital Signs Vital Signs Date Time Temp Pulse Resp B/P (MAP) Pulse Ox O2 Delivery O2 Flow Rate FiO2 01/06/22 15:36 36.9 70 18 99/55 (70) 92 Room Air Capillary Refill : Less Than 3 Seconds General Appearance: No Apparent Distress, WD/WN HEENT: PERRL/EOMI, Pharynx Normal Neck: Normal Inspection, Supple Respiratory: Lungs Clear, No Respiratory Distress Cardiovascular: Regular Rate, Rhythm, No Murmur Gastrointestinal: Normal Bowel Sounds, Soft Rectal: Other (perianal abscess) Extremity: Normal Inspection, No Pedal Edema Neurologic/Psychiatric: Alert, Disoriented, Other (cogwheel rigidity, tremor) Skin: Normal Color, Warm/Dry Results/Procedures Lab Laboratory Tests 01/06/22 05:44 Patient resulted labs reviewed. Imaging: Reviewed Imaging Report Assessment/Plan Assessment and Plan Assess & Plan/Chief Complaint T2DM with DKA ROBBI on CKD DKA resolved Levemir Sliding scale insulin A1C pending Diabetes education Perianal abscess Surgery consulted I&D performed 01/06 Transition to Zosyn HTN BPH Dementia Continue home meds Parkinsonian features Consider carbidopa/levodopa, follow up with PCP DVT prophylaxis: Lovenox Diagnosis/Problems Diagnosis/Problems (1) T2DM (type 2 diabetes mellitus) Status: Acute Qualifiers: Diabetes mellitus dedicated intermodal truck driver insulin use: without care home use Diabetes mellitus complication status: with ketoacidosis Diabetes mellitus complication detail: without coma Qualified Codes: E11.10 - Type 2 diabetes mellitus with ketoacidosis without coma (2) Acute kidney injury superimposed on chronic kidney disease Status: Acute (3) SIRS (systemic inflammatory response syndrome) Status: Acute (4) HTN (hypertension) Status: Chronic (5) BPH (benign prostatic hyperplasia) Status: Chronic (6) Dementia Status: Chronic (7) Perianal abscess Status: Acute (8) Parkinsonian features Status: Acute MONI SEN MD Jan 06, 2022 18:05
[2022-01-06] MEDS: TAMSULOSIN 0.4 MG (FLOMAX) CAP PO SCH (18:31)
[2022-01-06 19:12] VITALS: BP 99/51
[2022-01-06] MEDS: DONEPEZIL 10 MG (ARICEPT) TAB PO SCH (20:27)
--- NOTE | 2022-01-06 22:41 | OPERATIVE REPORT ---
DATE OF SERVICE: 01/06/2022 ATTENDING PRIMARY CARE PHYSICIAN: Dr. Alonzo Espinoza ADMITTING PHYSICIAN: Julian Alvarez MD PREOPERATIVE DIAGNOSIS: Right perineal abscess 3 x 2 cm in size. POSTOPERATIVE DIAGNOSIS: Right perineal abscess 3 x 2 cm in size with overlying devitalized skin and subcutaneous tissue. PROCEDURE: Incision and drainage of perianal abscess and debridement of devitalized skin and subcutaneous tissue 3 x 2 cm in size. SURGEON: Rc Pat MD ANESTHESIA: Local. ESTIMATED BLOOD LOSS: Minimal. FINDINGS: Same as postoperative diagnosis. DISPOSITION: The patient tolerated the procedure well. INDICATIONS: The patient is an 81-year-old male with a history of diabetes, who was brought to the Emergency Department due to fatigue as well as weakness. He was found to be hyperglycemic and diabetic ketoacidosis. Since that time, he has been admitted and treated medically with a good response. Nursing staff did notice redness as well as what appeared to be devitalized skin at the confluence of the right medial thigh and the perineum consistent with an abscess. DESCRIPTION OF PROCEDURE: The perineum was prepped and draped in standard surgical fashion. A 1% lidocaine with epinephrine was then used to anesthetize the overlying skin. The area was then opened using a 15 blade where there was a significant amount of purulence, which was sent for culture and sensitivity. The devitalized overlying skin was then excised using a 15 blade. There was also necrotic subcutaneous tissue within the abscess pocket, which was debrided with sharp dissecting scissors with visualization of good hemostasis. The cavity was then irrigated and packed with sterile gauze, then covered with a dry gauze followed by tape. The patient tolerated the procedure well. We will recommend removing of the packing and then wet to dry dressings on a b.i.d. basis to allow to close the secondary intention and continue antibiotics for now. Job ID: [id number] DocumentID: [id number] Dictated Date: 01/06/2022 13:28:11 Welding Machine Operator Arc Date: 01/06/2022 22:40:35 Dictated By: RC PAT MD
[2022-01-06 23:22] VITALS: BP 99/57
[2022-01-06] MEDS: PIPERACILLIN SODIUM/TAZOBACTAM 4.5 GM in NS (IVPB) 100 ML IV SCH (23:57)
[2022-01-07] MEDS: NS IV 1000 ML 1,000 ML IV SCH ×3 (03:24→21:02)
[2022-01-07 03:27] VITALS: BP 102/57
[2022-01-07] MEDS: inSUlin ASPART (NovoLOG) 1 UNIT/0.01 ML (CHARGE PER UNIT) SC SCH ×4 (05:38→21:24)
[2022-01-07 06:00] LABS: BASOPHILS % (AUTO) 0 % (0-10); EOSINOPHILS # (AUTO) 0.1 10^3/uL (0.0-0.3); EOSINOPHILS % (AUTO) 2 % (0-10); HEMATOCRIT 25 % (40-54); HEMOGLOBIN 8.1 g/dL (13.3-17.7); LYMPHOCYTES # (AUTO) 0.8 10^3/uL (1.0-4.0); LYMPHOCYTES % (AUTO) 12 % (12-44); MEAN CORPUSCULAR HEMOGLOBIN 31 pg (25-34); MEAN CORPUSCULAR HGB CONC 33 g/dL (32-36); MEAN CORPUSCULAR VOLUME 96 fL (80-99); MEAN PLATELET VOLUME 9.4 fL (9.0-12.2); MONOCYTES # (AUTO) 0.5 10^3/uL (0.0-1.0); MONOCYTES % (AUTO) 7 % (0-12); NEUTROPHILS # (AUTO) 5.2 10^3/uL (1.8-7.8); NEUTROPHILS % (AUTO) 78 % (42-75); PLATELET COUNT 168 10^3/uL (130-400); WHITE BLOOD COUNT 6.7 10^3/uL (4.3-11.0)
[2022-01-07 06:12] LABS: ALBUMIN 2.6 GM/DL (3.2-4.5); POTASSIUM 3.6 MMOL/L (3.6-5.0)
[2022-01-07 06:13] LABS: CALCIUM 8.1 MG/DL (8.5-10.1)
[2022-01-07 06:14] LABS: TOTAL PROTEIN 5.1 GM/DL (6.4-8.2)
[2022-01-07 06:16] LABS: BILIRUBIN,TOTAL 0.4 MG/DL (0.1-1.0)
[2022-01-07 06:18] LABS: CREATININE SERUM 1.56 MG/DL (0.60-1.30)
[2022-01-07 08:19] VITALS: BP 108/61
[2022-01-07] MEDS: MEMANTINE 5 MG (NAMENDA) TABLET PO SCH ×2 (09:28→20:24)
[2022-01-07] MEDS: DOCUSATE SODIUM 100 MG (COLACE) CAP PO SCH ×2 (09:28→20:24)
[2022-01-07] MEDS: PIPERACILLIN SODIUM/TAZOBACTAM 4.5 GM in NS (IVPB) 100 ML IV SCH ×2 (09:28→15:59)
[2022-01-07] MEDS: ENOXAPARIN 40 MG/0.4 ML (LOVENOX) SYR SC SCH (09:28)
[2022-01-07] MEDS: SENNOSIDES 8.6 MG (SENOKOT) TAB PO SCH ×2 (09:28→20:24)
[2022-01-07] MEDS: ENALAPRIL 10 MG (VASOTEC) TAB PO SCH (09:28)
[2022-01-07 11:25] VITALS: BP 118/58
--- NOTE | 2022-01-07 13:34 | Occupational Ther Daily Note ---
OT Current Status-Daily Note Subjective Pt in recliner during therapy with family member in room, both agreed to OT tx. Mental Status/Objective Attachments: Telemetry ADL-Treatment Therapy Code Descriptions/Definitions Functional [place] Measure: 0=Not Assessed/NA 4=Minimal Assistance 1=Total Assistance 5=Supervision or Setup 2=Maximal Assistance 6=Modified [place] 3=Moderate Assistance 7=Complete IndependenceSCALE: Activities may be completed with or without assistive devices. 5-Npxxvkxezx-nllqlsc completes the activity by him/herself with no assistance from a helper. 5-Set-up or Clean-up Assistance-helper sets up or cleans up; patient completes activity. [place] assists only prior to or following the activity. 4-Supervision or Touching Assistance-helper provides verbal cues and/or touching/steadying and/or contact guard assistance as patient completes activity. Assistance may be provided throughout the activity or intermittently. 3-Partial/Moderate Assistance-helper does LESS THAN HALF the effort. [place] lifts, holds or supports trunk or limbs, but provides less than half the effort. 2-Substantial/Maximal Assistance-helper does MORE THAN HALF the effort. [place] lifts or holds trunk or limbs and provides more than half the effort. 1-Fcxxorgtu-piubuy does ALL the effort. Patient does none of the effort to complete the activity. Or, the assistance of 2 or more helpers is required for the patient to complete the activity. If activity was not attempted, code reason: 7-Patient Refused. 9-Not Applicable-not attempted and the patient did not perform the activity be fore the current illness, exacerbation or injury. 10-Not Attempted due to Environmental Limitations-(lack of equipment, weather restraints, etc.). 88-Not Attempted due to Medical Conditions or Safety Concerns. Other Treatment Pt in recliner and performed face washing with one cue to restart task after pt forgot what he was doing. Pt then brushed teeth in recliner with Edgar to unscrew toothpaste. Pt completed shoulder flexion, elbow flexion, and shoulder horizontal abduction without wait to decrease pain, increase ROM and increase activity tolerance. pt in recliner with call light in reach with all needs met. nursing in room. OT Inspector Watch Train Goals Inspector Watch Train Goals Time Frame: Jan 22, 2022 Toileting Hygiene (QC): 4 Shower/Bathe Self (QC): 4 Upper Body Dressing (QC): 4 Lower Body Dressing (QC): 3 On/Off Footwear (QC): 3 Additional Goals: 1-Demonstrate ADL Tasks, 2-Verbalize Understanding, 3- ImproveStrength/Ot[place]iel 1=Demonstrate adherence to instructed precautions during ADL tasks. 2=Patient will verbalize/demonstrate understanding of assistive devices/modifications for ADL. 3=Patient will improve strength/tolerance for activity to enable patient to perform ADL's. OT Education/Plan Problem List/Assessment Assessment: Decreased Activ Tolerance, Decreased UE Strength, Impaired Cogn ition, Impaired Coordination, Impaired Funct Balance, Impaired I ADL's, Impaired Self-Care Skills Discharge Recommendations Plan/Recommendations: Continue POC Treatment Plan/Plan of Care Patient would benefit from OT for education, treatment and training to promote independence in ADL's, mobility, safety and/or upper extremity function for ADL's. Plan of Care: ADL Retraining, Functional Mobility, UE Funct Exercise/Act Treatment Duration: Jan 22, 2022 Frequency: 3 times per week (3-5 times per week) Estimated Hrs Per Day: .25 hour per day Agreement: Yes Rehab Potential: Guarded Time/GCodes Start Time: 13:17 Stop Time: 13:27 Total Time Billed (hr/min): 10 Billed Treatment Time 1 visit, ADL (10min) Petrona Hammond Jan 07, 2022 13:34
--- NOTE | 2022-01-07 15:27 | Progress Note - Hospitalist ---
Subjective HPI/CC On Admission Date Seen by Provider: Jan 07, 2022 Time Seen by Provider: 10:35 Rex Gabriel is an 81 year old male with PMH HTN, T2DM, BPH, dementia, who presented with lethargy. He is a poor historian due to his dementia. He was reportedly feeling weak for a few days according to family. He denies any fevers and chills. He denies pain. He denies shortness of breath and cough. He denies abdominal pain, nausea, vomiting, and diarrhea. He denies any joint pain. He denies any skin changes. Subjective/Events-last exam He is feeling better. He has no complaints. We discussed his plan of care. His was present and all questions were answered. Focused Exam Lactate Level 01/04/22 19:31: Lactic Acid Level 1.32 Time of Focused Exam: 20:40 Objective Exam Vital Signs Vital Signs Date Time Temp Pulse Resp B/P (MAP) Pulse Ox O2 Delivery O2 Flow Rate FiO2 01/07/22 13:00 63 01/07/22 11:25 36.5 18 118/58 (78) 97 Room Air Capillary Refill : Less Than 3 Seconds General Appearance: No Apparent Distress, WD/WN Respiratory: Lungs Clear, No Respiratory Distress Cardiovascular: Regular Rate, Rhythm, No Murmur Gastrointestinal: Normal Bowel Sounds, Soft Extremity: Normal Inspection, No Pedal Edema Neurologic/Psychiatric: Alert, Normal Mood/Affect Skin: Normal Color, Warm/Dry Results/Procedures Lab Laboratory Tests 01/07/22 05:50 Patient resulted labs reviewed. Imaging: Reviewed Imaging Report Assessment/Plan Assessment and Plan Assess & Plan/Chief Complaint T2DM with DKA ROBBI on CKD DKA resolved Levemir Sliding scale insulin A1C 9.9% Diabetes education Perianal abscess Surgery following I&D performed 01/06 Continue Zosyn Await culture results HTN BPH Dementia Continue home meds Parkinsonian features Consider carbidopa/levodopa, follow up with PCP DVT prophylaxis: Lovenox Diagnosis/Problems Diagnosis/Problems (1) T2DM (type 2 diabetes mellitus) Status: Acute Qualifiers: Diabetes mellitus residential insulin use: without residential use Diabetes mellitus complication status: with ketoacidosis Diabetes mellitus complication detail: without coma Qualified Codes: E11.10 - Type 2 diabetes mellitus with ketoacidosis without coma (2) Acute kidney injury superimposed on chronic kidney disease Status: Acute (3) SIRS (systemic inflammatory response syndrome) Status: Acute (4) HTN (hypertension) Status: Chronic (5) BPH (benign prostatic hyperplasia) Status: Chronic (6) Dementia Status: Chronic (7) Perianal abscess Status: Acute (8) Parkinsonian features Status: Acute MONI SEN MD Jan 07, 2022 15:27
[2022-01-07 15:53] VITALS: BP 141/70
--- NOTE | 2022-01-07 16:20 | Progress Note ---
Subjective Date Seen by a Provider: Jan 07, 2022 Time Seen by a Provider: 16:00 Subjective/Events-last exam Patient seen with Dr. Caba. Patient reports doing well. Reports minimal pain. Tolerating diet. Reports having BM this morning. Wound dressing changed. Focused Exam Lactate Level 01/04/22 19:31: Lactic Acid Level 1.32 Time of Focused Exam: 20:40 Objective Exam Vital Signs Date Time Temp Pulse Resp B/P (MAP) Pulse Ox O2 Delivery O2 Flow Rate FiO2 01/07/22 15:53 36.1 63 18 141/70 (93) 97 Room Air 01/07/22 13:00 63 01/07/22 11:25 36.5 58 18 118/58 (78) 97 Room Air 01/07/22 08:19 36.4 65 18 108/61 (77) 95 Room Air 01/07/22 08:00 Room Air 01/07/22 07:00 49 01/07/22 03:27 36.5 69 18 102/57 (72) 92 Room Air 01/07/22 01:00 54 01/06/22 23:22 36.1 69 18 99/57 (71) 92 Room Air 01/06/22 20:30 Room Air 01/06/22 19:12 36.6 71 18 99/51 (67) 92 Room Air 01/06/22 19:00 70 I & O 01/07/22 07:00 Intake Total 2380 ml Output Total 375 ml Balance 2005 ml Capillary Refill : Less Than 3 Seconds General Appearance: No Apparent Distress, WD/WN Neck: Non Tender, Supple Respiratory: No Accessory Muscle Use, No Respiratory Distress Gastrointestinal: normal bowel sounds, non tender, soft Extremity: Normal Inspection, Normal Range of Motion Neurologic/Psychiatric: Alert Skin: Other (Right perianal/buttock incision with surround redness/erythema, no active drainage. purulent exudate of wound bed, painful to palpation) Results Lab Laboratory Tests 01/06/22 20:17: Glucometer 198H 01/07/22 05:31: Glucometer 96 01/07/22 05:50: White Blood Count 6.7, Red Blood Count 2.58L, Hemoglobin 8.1L, Hematocrit 25L, Mean Corpuscular Volume 96, Mean Corpuscular Hemoglobin 31, Mean Corpuscular Hemoglobin Concent 33, Red Cell Distribution Width 13.3, Platelet Count 168, Mean Platelet Volume 9.4, Immature Granulocyte % (Auto) 1, Neutrophils (%) (Auto ) 78H, Lymphocytes (%) (Auto) 12, Monocytes (%) (Auto) 7, Eosinophils (%) (Auto) 2, Basophils (%) (Auto) 0, Neutrophils # (Auto) 5.2, Lymphocytes # (Auto) 0.8L, Monocytes # (Auto) 0.5, Eosinophils # (Auto) 0.1, Basophils # (Auto) 0.0, Immature Granulocyte # (Auto) 0.0, Sodium Level 138, Potassium Level 3.6, Chloride Level 113H, Carbon Dioxide Level 17L, Anion Gap 8, Blood Urea Nitrogen 30H, Creatinine 1.56H, Estimat Glomerular Filtration Rate 45, BUN/Creatinine Ratio 19, Glucose Level 92, Calcium Level 8.1L, Corrected Calcium 9.2, Total Bilirubin 0.4, Aspartate Amino Transf (AST/SGOT) 18, Alanine Aminotransferase (ALT/SGPT) 14, Alkaline Phosphatase 78, Total Protein 5.1L, Albumin 2.6L 01/07/22 10:55: Glucometer 102 01/07/22 15:25: Glucometer 201H Microbiology 01/06/22 Gram Stain - Final, Resulted 01/06/22 Wound Culture - Preliminary, Resulted Staphylococcus aureus 01/04/22 Blood Culture - Preliminary, Resulted No growth 01/04/22 Urine Culture - Final, Complete NO GROWTH Assessment/Plan Assessment/Plan Assess & Plan/Chief Complaint An 81 year old male with Right perineal abscess, S/P I&D VSS WBC 6.7 Continue abx, pain meds Wet to dry dressing changes RADHA FAM DIABETES TERRITORY MANAGER Jan 07, 2022 16:20
[2022-01-07] MEDS: TAMSULOSIN 0.4 MG (FLOMAX) CAP PO SCH (18:25)
--- NOTE | 2022-01-07 18:44 | Physician Query Clarification ---
Physician Query-General Query to Physician: The medical record reflects the following clinical scenario: The patient, in the setting of History/Risk factors, merle anal abscess, DM with DKA Clinical Findings Admission VS/LABS: HR 91, RR 18, BP 134/66, SpO2 98% sat on room air T 38.4 WBC 9.6, glucose 542, PCT 0.40, lactic acid 1.32 Bands 11 did increase to 10 less than 12 hours later, Abscess Pos for Staphylococcus aureus, BC X 2 no growth, Treatment ER: Normal saline 2 L, Tylenol p.o., insulin, Cefepime IV, Zosyn IV added later Question: Do you agree with the impression of Sepsis per Dr. Carolina Toure? 1. Yes; will document Sepsis present on admission in the Progress Notes 2. No; will continue current documentation in the Progress Notes 3. Other; will document explanation of clinical findings 4. Clinically undetermined; no explanation for clinical findings Please clarify and document your clinical opinion in the Progress Notes and Discharge Summary including the definitive and/or presumptive diagnosis, (suspected or probable), related to the above clinical findings. Please include clinical findings supporting your diagnosis. In responding to this query, please exercise your independent professional judgment. The purpose of this communication is to more accurately reflect the complexity of your patients condition. The fact that a question is asked does not imply that any particular answer is desired or expected. Thank you for timely response to this clarification. Scarlett Degroot RN, MSN Clinical Sealer Dry [email or web address] PHYSICIAN RESPONSE: Based on the clinical findings in the record, please respond to the query above on this document as an addendum. Physician Response: If you have questions please contact: Hr Analyst: Ext: Thank you for your time and cooperation. Clinical Sealer Dry Cell/Hr Analyst This is a permanent part of the medical record SCARLETT DEGROOT Jan 07, 2022 18:44 CONRADO YUAN Jan 11, 2022 11:10
[2022-01-07 19:24] VITALS: BP 114/63
[2022-01-07] MEDS: DONEPEZIL 10 MG (ARICEPT) TAB PO SCH (20:24)
[2022-01-07 23:36] VITALS: BP 133/70
[2022-01-08] MEDS: PIPERACILLIN SODIUM/TAZOBACTAM 4.5 GM in NS (IVPB) 100 ML IV SCH ×3 (00:01→16:44)
[2022-01-08 04:03] VITALS: BP 123/66
[2022-01-08 05:31] LABS: BASOPHILS % (AUTO) 0 % (0-10); EOSINOPHILS # (AUTO) 0.1 10^3/uL (0.0-0.3); EOSINOPHILS % (AUTO) 3 % (0-10); HEMATOCRIT 26 % (40-54); HEMOGLOBIN 8.4 g/dL (13.3-17.7); LYMPHOCYTES # (AUTO) 0.8 10^3/uL (1.0-4.0); LYMPHOCYTES % (AUTO) 17 % (12-44); MEAN CORPUSCULAR HEMOGLOBIN 31 pg (25-34); MEAN CORPUSCULAR HGB CONC 33 g/dL (32-36); MEAN CORPUSCULAR VOLUME 95 fL (80-99); MEAN PLATELET VOLUME 9.2 fL (9.0-12.2); MONOCYTES # (AUTO) 0.3 10^3/uL (0.0-1.0); MONOCYTES % (AUTO) 7 % (0-12); NEUTROPHILS # (AUTO) 3.3 10^3/uL (1.8-7.8); NEUTROPHILS % (AUTO) 72 % (42-75); PLATELET COUNT 182 10^3/uL (130-400); WHITE BLOOD COUNT 4.5 10^3/uL (4.3-11.0)
[2022-01-08] MEDS: inSUlin ASPART (NovoLOG) 1 UNIT/0.01 ML (CHARGE PER UNIT) SC SCH ×3 (05:32→16:44)
[2022-01-08 05:44] LABS: ALBUMIN 2.7 GM/DL (3.2-4.5)
[2022-01-08 05:45] LABS: POTASSIUM 3.8 MMOL/L (3.6-5.0)
[2022-01-08 05:46] LABS: CALCIUM 8.2 MG/DL (8.5-10.1)
[2022-01-08 05:47] LABS: TOTAL PROTEIN 5.3 GM/DL (6.4-8.2)
[2022-01-08 05:49] LABS: BILIRUBIN,TOTAL 0.3 MG/DL (0.1-1.0)
[2022-01-08 05:51] LABS: CREATININE SERUM 1.46 MG/DL (0.60-1.30)
[2022-01-08] MEDS: NS IV 1000 ML 1,000 ML IV SCH (06:54)
[2022-01-08 07:59] VITALS: BP 125/67
[2022-01-08] MEDS ORDERED: metFORMIN 500 MG (GLUCOPHAGE) TAB PO ONE (08:30)
[2022-01-08] MEDS: ENOXAPARIN 40 MG/0.4 ML (LOVENOX) SYR SC SCH (08:31)
[2022-01-08] MEDS: DOCUSATE SODIUM 100 MG (COLACE) CAP PO SCH (08:31)
[2022-01-08] MEDS: ENALAPRIL 10 MG (VASOTEC) TAB PO SCH (08:31)
[2022-01-08] MEDS: MEMANTINE 5 MG (NAMENDA) TABLET PO SCH (08:31)
[2022-01-08] MEDS: SENNOSIDES 8.6 MG (SENOKOT) TAB PO SCH (08:31)
[2022-01-08] MEDS ORDERED: AMOX1TAB12 PO (10:11)
[2022-01-08] MEDS ORDERED: INSU100I10 SQ (10:11)
--- NOTE | 2022-01-08 10:15 | D/C HH Face to Face Order ---
D/C Face to Face Orders Reconcile Patient Problems Problems Reviewed?: Yes Instructions for Patient Via [facility], Patient Instructions/FollowUp: Take medications as prescribed. Follow up with Dr. Espinoza in about a week. Complete your course of antibiotics even if you are feeling better. You are being started on once daily insulin. Monitor your blood sugars twice daily and as needed. Return with worsening confusion, pain, or if you feel like you are getting worse. Physician to follow Patient: Alexis Discharge Diet for Home: ADA Diet Patient Data-Allergies,Ht & Wt Patient Allergies: Coded Allergies: NKANo Known Allergies (Unverified Allergy, Mild, 11/02/09) Home Health Need/Face to Face Date of Face to Face: Jan 08, 2022 Clinical Findings: Generalized weakness and fatigue, Muscle weakness, Unsteady gait I have seen Pt [id number]: Yes Discharged To: Home Diagnosis/Conditions: T2DM HTN CKD Dementia Possible Parkinson's disease Problems/Diagnosis/Condition: (1) DKA (diabetic ketoacidosis) (2) T2DM (type 2 diabetes mellitus) (3) HTN (hypertension) (4) CKD (chronic kidney disease) stage 3, GFR 30-59 ml/min (5) Dementia (6) Parkinsonian features Patient is Homebound due to: CognItive deficits, Valentine fall risk due to instabilty, Muscle weakness Homebound Status Due to the above stated illness, injury or surgical procedure (medical condition or diagnosis) and associated clinical findings, the patient is homebound because of his/her inability to leave home except with aid of a supportive device and/or person AND leaving the home requires a considerable and taxing effort or is medically contraindicated. Pt req the following assistanc: Aid of another person, [facility] Health Nursing Orders Home Health Services Order: Nursing Services, R&D Lab Technician-Evaluate & Treat, Physical Therapy-Evaluate & Treat Home Health Infusion Therapy Line Start Date: Jan 07, 2022 Therapy Orders Therapy Orders: OT (must have SN or PT order), Physical Therapy Therapy Specific Orders: Eval assistive deivces, Teach strategies/cognitive deficits, Teach enviro modifications/safety, Gait training, Increase strength/endurance Certify Stmt I certify that this patient is under my care and that I, a nurse practitioner or a physician; a blood and plasma laboratory assistant working with me, had a face to face encounter that - meets the physician face to face encounter requirements with this patient as dated. MONI SEN MD Jan 08, 2022 10:15
--- NOTE | 2022-01-08 11:09 | Progress Note ---
Subjective Date Seen by a Provider: Jan 08, 2022 Time Seen by a Provider: 11:00 Subjective/Events-last exam doing better. pain controlled. no fever/chills. no perineal pain. Focused Exam Time of Focused Exam: 20:40 Objective Exam Vital Signs Date Time Temp Pulse Resp B/P (MAP) Pulse Ox O2 Delivery O2 Flow Rate FiO2 01/08/22 08:00 Room Air 01/08/22 07:59 36.5 62 18 125/67 (86) 96 Room Air 01/08/22 07:00 50 01/08/22 04:03 36.8 57 18 123/66 (85) 57 Room Air 01/08/22 01:00 53 01/07/22 23:36 36.6 65 18 133/70 (91) 95 Room Air 01/07/22 20:00 Room Air 01/07/22 19:24 36.4 65 18 114/63 (80) 96 Room Air 01/07/22 19:00 70 01/07/22 15:53 36.1 63 18 141/70 (93) 97 Room Air 01/07/22 13:00 63 01/07/22 11:25 36.5 58 18 118/58 (78) 97 Room Air I & O 01/08/22 07:00 Intake Total 4320 ml Balance 4320 ml Capillary Refill : Less Than 3 Seconds General Appearance: No Apparent Distress HEENT: PERRL/EOMI Neck: Full Range of Motion Respiratory: Chest Non Tender, Lungs Clear Cardiovascular: Regular Rate, Rhythm Gastrointestinal: normal bowel sounds, non tender, soft Extremity: Normal Capillary Refill Neurologic/Psychiatric: Alert Skin: Other (wound clean/dry, no surrounding redness/erythema) Lymphatic: No Adenopathy Results Lab Laboratory Tests 01/07/22 15:25: Glucometer 201H 01/07/22 21:07: Glucometer 185H 01/08/22 05:09: White Blood Count 4.5, Red Blood Count 2.71L, Hemoglobin 8.4L, Hematocrit 26L, Mean Corpuscular Volume 95, Mean Corpuscular Hemoglobin 31, Mean Corpuscular Hemoglobin Concent 33, Red Cell Distribution Width 13.4, Platelet Count 182, Mean Platelet Volume 9.2, Immature Granulocyte % (Auto) 1, Neutrophils (%) (Auto) 72, Lymphocytes (%) (Auto) 17, Monocytes (%) (Auto) 7, Eosinophils (%) (Auto) 3, Basophils (%) (Auto) 0, Neutrophils # (Auto) 3.3, Lymphocytes # (Auto) 0.8L, Monocytes # (Auto) 0.3, Eosinophils # (Auto) 0.1, Basophils # (Auto) 0.0, Immature Granulocyte # (Auto) 0.0, Sodium Level 144, Potassium Level 3.8, Chloride Level 115H, Carbon Dioxide Level 17L, Anion Gap 12, Blood Urea Nitrogen 25H, Creatinine 1.46H, Estimat Glomerular Filtration Rate 48, BUN/Creatinine Ratio 17, Glucose Level 105, Calcium Level 8.2L, Corrected Calcium 9.2, Total Bilirubin 0.3, Aspartate Amino Transf (AST/SGOT) 16, Alanine Aminotransferase (ALT/SGPT) 17, Alkaline Phosphatase 75, Total Protein 5.3L, Albumin 2.7L 01/08/22 05:10: Glucometer 107 01/08/22 10:22: Glucometer 104 Microbiology 01/06/22 Gram Stain - Final, Resulted 01/06/22 Wound Culture - Preliminary, Resulted Usual Mixed Skin Heather Staphylococcus aureus 01/04/22 Blood Culture - Preliminary, Resulted No growth 01/04/22 Urine Culture - Final, Complete NO GROWTH Assessment/Plan Assessment/Plan Assess & Plan/Chief Complaint s/p right perineal I&D and debridement. cont wound change. ok for transfer when ok with [facility] HESS MD Jan 08, 2022 11:09
[2022-01-08 11:20] VITALS: BP 128/70
--- NOTE | 2022-01-08 11:43 | Occupational Ther Daily Note ---
OT Current Status-Daily Note Subjective Pt sitting in recliner upon OT arrival. Pt states that he is still in shape and will do UE exercises if clinician needs the exercise. He says he is eager to return home so he can go on his morning walks around the neighborhood. Mental Status/Objective Patient Orientation: Person, Confused Attachments: IV ADL-Treatment Therapy Code Descriptions/Definitions Functional [place] Measure: 0=Not Assessed/NA 4=Minimal Assistance 1=Total Assistance 5=Supervision or Setup 2=Maximal Assistance 6=Modified [place] 3=Moderate Assistance 7=Complete IndependenceSCALE: Activities may be completed with or without assistive devices. 1-Fvqqgiqspx-ubzaaie completes the activity by him/herself with no assistance from a helper. 5-Set-up or Clean-up Assistance-helper sets up or cleans up; patient completes activity. [place] assists only prior to or following the activity. 4-Supervision or Touching Assistance-helper provides verbal cues and/or touching/steadying and/or contact guard assistance as patient completes activity. Assistance may be provided throughout the activity or intermittently. 3-Partial/Moderate Assistance-helper does LESS THAN HALF the effort. [place] lifts, holds or supports trunk or limbs, but provides less than half the effort. 2-Substantial/Maximal Assistance-helper does MORE THAN HALF the effort. [place] lifts or holds trunk or limbs and provides more than half the effort. 2-Rybrnicfz-treooj does ALL the effort. Patient does none of the effort to complete the activity. Or, the assistance of 2 or more helpers is required for the patient to complete the activity. If activity was not attempted, code reason: 7-Patient Refused. 9-Not Applicable-not attempted and the patient did not perform the activity before the current illness, exacerbation or injury. 10-Not Attempted due to Environmental Limitations-(lack of equipment, weather restraints, etc.). 88-Not Attempted due to Medical Conditions or Safety Concerns. Other Treatment Pt remained in recliner throughout duration of tx. He stated that he did not need to do UE exercises because he is still in "good shape," but he eventually did them with the clinician to prove that he was in shape. Pt was educated on the importance of UE exercises in maintaining BUE strength and endurance needed for self-care activities and functional transfers, pt verbalized understanding but level of understanding is uncertain. He completed 2x15 bicep curls, 1x15 chest presses, 1x20 alternating punches, and 1x15 shoulder flexion. Pt required v/c's to complete exercises in a slow and controlled manner, reinforcement needed throughout exercises. Post tx, pt left in recliner with lunch, call light in reach, and all needs met. Education OT Patient Education: Energy conservation, Exercise program, Progress toward Goal/Update tx plan, Purpose of tx/functional activities, Rehab process Teaching Recipient: Patient Teaching Methods: Demonstration, Discussion Response to Teaching: Verbalize Understanding, Return Demonstration, Reinforcement Needed OT Fpc Goals Coal Unloader Goals Time Frame: Jan 22, 2022 Toileting Hygiene (QC): 4 Shower/Bathe Self (QC): 4 Upper Body Dressing (QC): 4 Lower Body Dressing (QC): 3 On/Off Footwear (QC): 3 Additional Goals: 1-Demonstrate ADL Tasks, 2-Verbalize Understanding, 3-I mproveStrength/Ottoniel 1=Demonstrate adherence to instructed precautions during ADL tasks. 2=Patient will verbalize/demonstrate understanding of assistive devices/modifications for ADL. 3=Patient will improve strength/tolerance for activity to enable patient to perform ADL's. OT Education/Plan Problem List/Assessment Assessment: Decreased Activ Tolerance, Decreased Safety Aware, Decreased UE Strength, Impaired I ADL's, Impaired Self-Care Skills Discharge Recommendations Plan/Recommendations: Continue POC Treatment Plan/Plan of Care Patient would benefit from OT for education, treatment and training to promote independence in ADL's, mobility, safety and/or upper extremity function for ADL's. Plan of Care: ADL Retraining, Functional Mobility, UE Funct Exercise/Act Treatment Duration: Jan 22, 2022 Frequency: 3 times per week (3-5 times per week) Estimated Hrs Per Day: .25 hour per day Agreement: Yes Rehab Potential: Guarded Time/GCodes Start Time: 11:28 Stop Time: 11:36 Total Time Billed (hr/min): 8 Billed Treatment Time 1, Ex [place] OT Jan 08, 2022 11:43
--- NOTE | 2022-01-08 11:50 | Physical Therapy Daily Note ---
PT Daily Note-Current Subjective Patient agrees to PT. Mental Status Patient Orientation: Confused Attachments: IV Transfers SCALE: Activities may be completed with or without assistive devices. 7-Dzwhqppnpc-icvnrwf completes the activity by him/herself with no assistance from a helper. 5-Set-up or Clean-up Assistance-helper sets up or cleans up; patient completes activity. [place] assists only prior to or following the activity. 4-Supervision or Touching Assistance-helper provides verbal cues and/or touchi ng/steadying and/or contact guard assistance as patient completes activity. Assistance may be provided throughout the activity or intermittently. 3-Partial/Moderate Assistance-helper does LESS THAN HALF the effort. [place] lifts, holds or supports trunk or limbs, but provides less than half the effort. 2-Substantial/Maximal Assistance-helper does MORE THAN HALF the effort. [place] lifts or holds trunk or limbs and provides more than half the effort. 8-Vhsrerufn-nccjkc does ALL the effort. Patient does none of the effort to complete the activity. Or, the assistance of 2 or more helpers is required for the patient to complete the activity. If activity was not attempted, code reason: 7-Patient Refused. 9-Not Applicable-not attempted and the patient did not perform the activity before the current illness, exacerbation or injury. 10-Not Attempted due to Environmental Limitations-(lack of equipment, weather restraints, etc.). 88-Not Attempted due to Medical Conditions or Safety Concerns. Sit to Stand (QC): 4 Gait Training Distance: 400' Walk 10 feet (QC): 4 Walk 50 ft with 2 Turns(QC): 4 Walk 150 ft (QC): 4 Gait Assistive Device: FWW SBA for safety with FWW use Assessment Patient up in recliner with chair alarm activated. Plan to dismiss to home with spouse and home health soon. PT Fpc Goals Continuity Manager Goals PT Continuity Manager Goals Time Frame: Jan 13, 2022 Roll Left & Right (QC): 6 Sit to Lying (QC): 6 Lying-Sitting on Side/Bed(QC): 6 Sit to Stand (QC): 4 (SBA) Chair/Fgo-eo-Nhskq Xfer(QC): 4 (SBA) Walk 10 feet (QC): 4 (SBA) Walk 50ft with 2 Turns (QC): 4 (SBA) PT Plan Treatment/Plan Treatment Plan: Continue Plan of Care Treatment Plan: Bed Mobility, Education, Functional Activity Ottoniel, Functional Strength, Gait, Safety, Therapeutic Exercise, Transfers Treatment Duration: Jan 13, 2022 Frequency: 6 times per week Estimated Hrs Per Day: .25 hour per day Patient and/or Family Agrees t: Yes Time/GCodes Time In: 1104 Time Out: 1114 Total Billed Treatment Time: 10 Total Billed Treatment 1 visit FA 10 min AIYANA CASH PT Jan 08, 2022 11:50
--- NOTE | 2022-01-08 14:26 | Discharge Summary ---
Discharge Summary Hospital Course Problems/Dx: (1) T2DM (type 2 diabetes mellitus) Status: Acute Qualifiers: Qualified Codes: E11.10 - Type 2 diabetes mellitus with ketoacidosis without coma (2) Acute kidney injury superimposed on chronic kidney disease Status: Acute (3) SIRS (systemic inflammatory response syndrome) Status: Acute (4) HTN (hypertension) Status: Chronic (5) BPH (benign prostatic hyperplasia) Status: Chronic (6) Dementia Status: Chronic (7) Perianal abscess Status: Acute (8) Parkinsonian features Status: Acute (9) Sepsis Status: Acute Qualifiers: Qualified Codes: A41.01 - Sepsis due to methicillin susceptible Staphyloc occus aureus Hospital Course Date of Admission: Jan 04, 2022 at 20:35 Admission Diagnosis : T2DM with DKA Family Physician/Provider: Alonzo Graves MD Date of Discharge: 01/08/22 Discharge Diagnosis T2DM with DKA, sepsis due to perianal abscess, Parkinsonian features Hospital Course: Rex Gabriel is an 81 year old male who presented with lethargy and was admitted with diabetic ketoacidosis. He is a type 2 diabetic and has not been on insulin. He was started on Levemir and Novolog sliding scale. His anion gap closed in the ER and he was admitted to the medical floor. He also had ROBBI on CKD which improved with IV fluids. He was febrile and was found to have a perianal abscess. Surgery was consulted and performed bedside I&D. The culture was growing Staph aureus, presumed MSSA. He was given a prescription for Omnicef to complete as an outpatient. He was started on Lantus 5 units daily. He was provided diabetes education. He also had symptoms consistent with Parkinson's disease and will need further evaluation and to consider initiation of anti-P arkinson's medications. He should follow up with Dr. Graves, PCP, in about a week. He was discharged home in stable condition. He was set up with home health care. Labs and Pending Lab Test: Laboratory Tests 01/07/22 15:25: Glucometer 201H 01/07/22 21:07: Glucometer 185H 01/08/22 05:09: White Blood Count 4.5, Red Blood Count 2.71L, Hemoglobin 8.4L, Hematocrit 26L, Mean Corpuscular Volume 95, Mean Corpuscular Hemoglobin 31, Mean Corpuscular Hemoglobin Concent 33, Red Cell Distribution Width 13.4, Platelet Count 182, Mean Platelet Volume 9.2, Immature Granulocyte % (Auto) 1, Neutrophils (%) (Auto) 72, Lymphocytes (%) (Auto) 17, Monocytes (%) (Auto) 7, Eosinophils (%) (Auto) 3, Basophils (%) (Auto) 0, Neutrophils # (Auto) 3.3, Lymphocytes # (Auto) 0.8L, Monocytes # (Auto) 0.3, Eosinophils # (Auto) 0.1, Basophils # (Auto) 0.0, Immature Granulocyte # (Auto) 0.0, Sodium Level 144, Potassium Level 3.8, Chloride Level 115H, Carbon Dioxide Level 17L, Anion Gap 12, Blood Urea Nitrogen 25H, Creatinine 1.46H, Estimat Glomerular Filtration Rate 48, BUN/Creatinine Ratio 17, Glucose Level 105, Calcium Level 8.2L, Corrected Calcium 9.2, Total Bilirubin 0.3, Aspartate Amino Transf (AST/SGOT) 16, Alanine Aminotransferase (ALT/SGPT) 17, Alkaline Phosphatase 75, Total Protein 5.3L, Albumin 2.7L 01/08/22 05:10: Glucometer 107 01/08/22 10:22: Glucometer 104 Microbiology 01/06/22 Gram Stain - Final, Resulted 01/06/22 Wound Culture - Preliminary, Resulted Usual Mixed Skin Heather Staphylococcus aureus 01/04/22 Blood Culture - Preliminary, Resulted No growth 01/04/22 Urine Culture - Final, Complete NO GROWTH Home Meds Active Amox Tr-K Clv 875-125 mg Tab (Amoxicillin/Potassium Clav) 875 Mg-125 Mg Tablet 1 Each PO BID 7 Days Lantus Solostar (Insulin Glargine,Hum.rec.anlog) 100 Unit/Ml (3 Ml) Insuln.pen 5 Unit SQ DAILY 30 Days Reported Vitamin D3 (Cholecalciferol (Vitamin D3)) 25 Mcg (1000 Unit) Tablet 25 Mcg PO DAILY Vitamin C (Ascorbic Acid) 1,000 Mg Tablet 1,000 Mg PO DAILY Zinc (Zinc Amino Acid Chelate) 50 Mg Tablet 50 Mg PO DAILY Multivitamin 1 Each Tablet 1 Each PO DAILY Aleve (Naproxen Sodium) 220 Mg Capsule 220 Mg PO Q12H Benadryl Allergy (Diphenhydramine HCl) 25 Mg Tablet 50 Mg PO HS TAKES 2 (25MG) TABS Enalapril Maleate 10 Mg Tablet 10 Mg PO DAILY Flomax (Tamsulosin HCl) 0.4 Mg Cap 0.4 Mg PO 1800 TAKES AFTER DINNER Donepezil HCl 10 Mg Tablet 10 Mg PO HS Metformin HCl 500 Mg Tablet 500 Mg PO BIDPC Memantine HCl 5 Mg Tablet 5 Mg PO Q12H Assessment/Pt Instructions See instructions Discharge Planning: >30 minutes discharge planning Discharge Instructions Discharge Diet: ADA Diet Activity as Tolerated: Yes Consultations Surgery Discharge Physical Examination Vital Signs Vital Signs Date Time Temp Pulse Resp B/P (MAP) Pulse Ox O2 Delivery O2 Flow Rate FiO2 01/08/22 11:20 36.6 65 18 128/70 (89) 94 Room Air General Appearance: No Apparent Distress, WD/WN Respiratory: Lungs Clear, No Respiratory Distress Cardiovascular: Regular Rate, Rhythm, No Murmur Gastrointestinal: Normal Bowel Sounds, Soft Extremity: Normal Inspection, No Pedal Edema Skin: Normal Color, Warm/Dry Neurologic/Psychiatric: Alert, Other (cogwheel rigidity, tremor) Allergies: Coded Allergies: NKANo Known Allergies (Unverified Allergy, Mild, 11/02/09) Copy Copies To 1: ALONZO GRAVES MD Discharge Summary Date of Admission Jan 04, 2022 at 20:35 Date of Discharge Discharge Date: Jan 08, 2022 Discharge Time: 14:24 Admission Diagnosis DKA Discharge Diagnosis T2DM with DKA ROBBI on CKD Perianal abscess Parkinsonian features (1) T2DM (type 2 diabetes mellitus) Status: Acute Qualifiers: Qualified Codes: E11.10 - Type 2 diabetes mellitus with ketoacidosis without coma (2) Acute kidney injury superimposed on chronic kidney disease Status: Acute (3) SIRS (systemic inflammatory response syndrome) Status: Acute (4) HTN (hypertension) Status: Chronic (5) BPH (benign prostatic hyperplasia) Status: Chronic (6) Dementia Status: Chronic (7) Perianal abscess Status: Acute (8) Parkinsonian features Status: Acute (9) Sepsis Status: Acute Qualifiers: Qualified Codes: A41.01 - Sepsis due to methicillin susceptible Staphylococcus aureus MONI SEN MD Jan 08, 2022 14:24
[2022-01-08] MEDS: TAMSULOSIN 0.4 MG (FLOMAX) CAP PO SCH (16:48)
[2022-01-08] MEDS ORDERED: metFORMIN 500 MG (GLUCOPHAGE) TAB PO SCH (17:00)
[2022-01-08 17:33] VITALS: BP 128/70
== END 2022-01-08 17:34 | disposition home health service (06) | DRG 853 ==
LOC: EDUNIT# 19:21 → ER 19:22 → 4TH 20:35
PROVIDERS: ADMIT Internal Medicine; ATTEND Internal Medicine
PROC: 0J990ZZ Drainage of Buttock Subcutaneous Tissue and Fascia, Open Approach (ICD-10-PCS; principal; 2022-01-06)
PROC: 0JB90ZZ Excision of Buttock Subcutaneous Tissue and Fascia, Open Approach (ICD-10-PCS; 2022-01-06)
DX: A41.01 Sepsis due to Methicillin susceptible Staphylococcus aureus (principal); E11.10 Type 2 diabetes mellitus with ketoacidosis without coma; K61.0 Anal abscess; N17.9 Acute kidney failure, unspecified; E86.0 Dehydration; I12.9 Hypertensive chronic kidney disease with stage 1 through stage 4 chronic kidney disease, or unspecified chronic kidney disease; E11.22 Type 2 diabetes mellitus with diabetic chronic kidney disease; Z66 Do not resuscitate; Z20.822 Contact with and (suspected) exposure to COVID-19; N18.9 Chronic kidney disease, unspecified; F03.90 Unspecified dementia, unspecified severity, without behavioral disturbance, psychotic disturbance, mood disturbance, and anxiety; N40.0 Benign prostatic hyperplasia without lower urinary tract symptoms; G20 Parkinson's disease; H54.7 Unspecified visual loss; H91.90 Unspecified hearing loss, unspecified ear; Z79.84 Long term (current) use of oral hypoglycemic drugs; Z96.653 Presence of artificial knee joint, bilateral
CPT/HCPCS: 36415; 36600; 71045; 80048; 80053; 81000; 82010; 82150; 82607; 82728; 82746; 82805; 82947; 83036; 83540; 83550; 83605; 83690; 83735; 84145; 85007; 85025; 85027; 85610; 85652; 85730; 86141; 87040; 87070; 87077; 87088; 87186; 87205; 87636; 93041; 96372; 96374; 96375

== ENCOUNTER 2022-05-01 12:37 | Emergency (ER) | payer MEDICARE ==
[~2022-05-01 12:37] MED LIST changes: +AMOX1TAB12 PO; +ASCO100024 PO; +CHOL-34 PO; +DIPH25TA65 PO; +DONE10TA41 PO; +ENAL10TA16 PO; +INSU100I10 SQ; +MEMA5TAB43 PO; +METF-397 PO; +MULT-1136 PO; +NAPR220C11 PO; +TMSL.4C PO; +ZINC50TA51 PO
--- NOTE | 2022-05-01 13:08 | ED Fall/Injury ---
General Chief Complaint: Trauma-Non Activation Stated Complaint: FALL Nursing Triage Note: PT TO [facility] 10 BY EMS WITH C/O FALL THIS MORNING AROUND 0830-9, HIT HEAD. PT DENIES ANY PAIN OR COMPLAINTS AT THIS TIME Source: patient Exam Limitations: no limitations History of Present Illness Date Seen by Provider: May 01, 2022 Time Seen by Provider: 12:40 Initial Comments Patient is an 81-year-old male who presents to the emergency department via EMS from his care home for evaluation after he had a mechanical fall this morning at approximately 8 AM. The fall was unwitnessed. Patient states he fell backwards and struck the back of his head on the floor. He states he did not lose consciousness. Patient was able to get himself off the floor and has been at baseline since that time. Patient denies any complaints at this time. Patient does have a history of dementia. Patient has been ambulatory and denies any pain with walking. Patient is reportedly sent to the ER from the care home for evaluation per their policy after patient falls. Patient is not on any anticoagulation at this time Injuries/Pain Location: head Allergies and Home Medications Allergies Coded Allergies: NKANo Known Allergies (Unverified Allergy, Mild, 11/02/09) Patient Home Medication List Home Medication List Reviewed: Yes Amoxicillin/Potassium Clav (Amox Tr-K Clv 875-125 mg Tab) 875 Mg-125 Mg Tablet, 1 EACH PO BID Prescribed by: MONI SEN on 01/08/22 1011 Ascorbic Acid (Vitamin C) 1,000 Mg Tablet, 1,000 MG PO DAILY, (Reported) Entered as Reported by: MARITA WALTERS on 01/05/22 111 Cholecalciferol (Vitamin D3) (Vitamin D3) 25 Mcg (1000 Unit) Tablet, 25 MCG PO DAILY, (Reported) Entered as Reported by: MARITA WALTERS on 01/05/22 111 Diphenhydramine HCl (Benadryl Allergy) 25 Mg Tablet, 50 MG PO HS, (Reported) Entered as Reported by: MARITA WALTERS on 01/05/22 111 Donepezil HCl (Donepezil HCl) 10 Mg Tablet, 10 MG PO HS, (Reported) Entered as Reported by: MARITA WALTERS on 01/05/22 111 Enalapril Maleate (Enalapril Maleate) 10 Mg Tablet, 10 MG PO DAILY, (Reported) Entered as Reported by: MARITA WALTERS on 01/05/22 111 Insulin Glargine,Hum.rec.anlog (Lantus Solostar) 100 Unit/Ml (3 Ml) Insuln.pen, 5 UNIT SQ DAILY Prescribed by: MONI SEN on 01/08/22 1011 Memantine HCl (Memantine HCl) 5 Mg Tablet, 5 MG PO Q12H, (Reported) Entered as Reported by: MARITA WALTERS on 01/05/22 111 Metformin HCl (Metformin HCl) 500 Mg Tablet, 500 MG PO BIDPC, (Reported) Entered as Reported by: MARITA WALTERS on 01/05/221116 Multivitamin (Multivitamin) 1 Each Tablet, 1 EACH PO DAILY, (Reported) Entered as Reported by: MARITA WALTERS on 01/05/22 111 Naproxen Sodium (Aleve) 220 Mg Capsule, 220 MG PO Q12H, (Reported) Entered as Reported by: MARITA WALTERS on 01/05/22 111 Tamsulosin HCl (Flomax) 0.4 Mg Cap, 0.4 MG PO 1800, (Reported) Entered as Reported by: MARITA WALTERS on 01/05/221116 Zinc Amino Acid Chelate (Zinc) 50 Mg Tablet, 50 MG PO DAILY, (Reported) Entered as Reported by: MARITA WALTERS on 01/05/221116 Review of Systems Review of Systems Constitutional: no symptoms reported Eyes: No Symptoms Reported Ears, Nose, Mouth, Throat: no symptoms reported Respiratory: no symptoms reported Cardiovascular: no symptoms reported Gastrointestinal: no symptoms reported Genitourinary: no symptoms reported Musculoskeletal: no symptoms reported Psychiatric/Neurological: See HPI Past Acdhnhy-Rqvqzq-Uaftqa Hx Immunizations Up To Date First/Initial COVID19 Vaccinat: UNKNOWN Past Medical History Surgeries: Yes (BILATERAL KNEE REPLACEMENTS) Joint Replacement, Orthopedic Cardiac: Yes Heart Murmur, Hypertension Neurological: Yes Dementia Reproductive Disorders: No Genitourinary: No Gastrointestinal: No Musculoskeletal: Yes (BILATERAL KNEE REPLACEMENTS) Arthritis Endocrine: Yes Diabetes, Non-Insulin dep Cancer: No Psychosocial: No Integumentary: No Blood Disorders: No Family Medical History No Pertinent Family Hx Physical Exam Vital Signs Vital Signs - First Documented 05/01/22 12:40 Temp 36.4 Pulse 65 Resp 16 B/P (MAP) 164/64 (97) Pulse Ox 95 O2 Delivery Room Air Capillary Refill : Height, Weight, BMI Height: '" Weight: lbs. oz. kg; 24.30 BMI Method:Stated General Appearance: WD/WN, no apparent distress HEENT: PERRL/EOMI, normal ENT inspection, TMs normal, pharynx normal Neck: non-tender, full range of motion, supple, normal inspection Cardiovascular: regular rate, rhythm Respiratory: chest non-tender, lungs clear, normal breath sounds, no respiratory distress, no accessory muscle use Gastrointestinal: normal bowel sounds, non tender, soft Extremities: normal range of motion, non-tender Neurologic/Psychiatric: no motor/sensory deficits, alert, normal mood/affect, oriented x 3 Skin: normal color, warm/dry [place] Coma Score Best Eye Response: (4) Open Spontaneously Best Verbal Response: (5) Oriented Best Motor Response: (6) Obeys Commands [place] Total: 15 Progress/Results/Core Measures Results/Orders My Orders Orders - SHUN LUX APRN Ct Head Wo (05/01/22 12:54) Vital Signs/I&O 05/01/22 05/01/22 12:40 12:40 Temp 36.4 Pulse 65 65 Resp 16 16 B/P (MAP) 164/64 (97) 164/64 (97) Pulse Ox 95 O2 Delivery Room Air Blood Pressure Mean: 97 Progress Progress Note : Progress Note Patient is nontoxic and well-hydrated on exam. No focal neurologic deficits appreciated. No hematomas or bony deformities noted to the scalp/skull. Will obtain head CT given that the fall was unwitnessed. I overall have a low suspicion for any significant cranial/intracranial injury. Patient is conversant and denies any acute complaints. He is anxious to be discharged home. CT of the head obtained that is acutely negative. No indication for further diagnostic testing at this time. Patient continues to state he feels completely normal. Will discharge back to the nursing facility. Follow-up with PCP as needed. Return precautions for urgent symptomology discussed. Patient verbalized understanding. Departure Impression Primary Impression: Fall Qualified Codes: W19.XXXA - Unspecified fall, initial encounter Additional Impression: Minor head injury without loss of consciousness Qualified Codes: S09.90XA - Unspecified injury of head, initial encounter Disposition: 01 HOME, SELF-CARE Condition: Stable Departure-Patient Inst. Decision time for Depature: 13:30 Referrals: KEI GRAVES MD (PCP/Family) Primary Care Physician Patient Instructions: Preventing Falls ED SHUN LUX CANDLE MAKER May 01, 2022 13:08
--- NOTE | 2022-05-01 13:13 | Diagnostic Imaging Report ---
EXAMINATION: CT head without contrast. TECHNIQUE: Multiple contiguous axial images were obtained through the brain without the use of intravenous contrast. All CT scans use one or more of the following dose optimizing techniques: automated exposure control, MA and/or KvP adjustment based on patient size and exam type or iterative reconstruction. HISTORY: Head injury COMPARISON: None available. 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 No mass effect or midline shift. There is age related cerebral atrophy with ex vacuo dilation of the ventricles. Periventricular white matter hypoattenuation is in keeping with chronic small vessel ischemic changes. Basilar cisterns are patent. There are no intra- or extra-axial fluid collections. There is no intracranial hemorrhage. The orbits are normal. Paranasal sinuses are normal. Mastoid air cells are clear. No soft tissue abnormality is seen. No osseus lesions or fractures are seen. IMPRESSION: 1. No acute intracranial abnormality. Dictated by: Dictated on workstation # [id number]
[2022-05-01 15:01] VITALS: BP 143/76
== END 2022-05-01 15:03 | disposition home or self-care (01) ==
LOC: EDUNIT# 12:37 → ER 12:39
DX: S09.90XA Unspecified injury of head, initial encounter (principal); R40.2362 Coma scale, best motor response, obeys commands, at arrival to emergency department; R40.2142 Coma scale, eyes open, spontaneous, at arrival to emergency department; R40.2252 Coma scale, best verbal response, oriented, at arrival to emergency department; W18.30XA Fall on same level, unspecified, initial encounter; W22.8XXA Striking against or struck by other objects, initial encounter
CPT/HCPCS: 70450